=== PATIENT | female | born 1950 | race Caucasian/White ===

== ENCOUNTER 2016-12-20 09:22 | Emergency (ER) | payer MEDICARE, OTHER ==
[2016-12-20 09:39] VITALS: BP 95/62
--- NOTE | 2016-12-20 10:07 | RAD ---
INDICATION: Cough COMPARISON: None TECHNIQUE: PA and lateral dual-energy views were obtained. FINDINGS: Bones/Soft Tissues: There are no acute bony findings. Cardiomediastinal: The cardiomediastinal silhouette is normal. The interstitium is mildly prominent. This could reflect chronic change or be related to a small amount of interstitial edema Lungs: There are no infiltrates. Pleura: There are no pleural effusions. Other: None IMPRESSION: MILD INTERSTITIAL PROMINENCE MAY RELATE TO CHRONIC CHANGE OR MILD INTERSTITIAL EDEMA
--- NOTE | 2016-12-20 10:15 | UC ---
Respiratory Complaint HPI - HPI Summary HPI Summary: cough x 3 days chest congestion , fatigue, no fever, + chills, + nasal congestion , - History of Current Complaint Chief Complaint: UCRespiratory Stated Complaint: CHEST CONGSTION, COUGH Time Seen by Provider: 12/20/16 09:45 Hx Obtained From: Patient Onset/Duration: Gradual Onset, Lasting Days - 3, Still Present Timing: Constant Severity Initially: Moderate Severity Currently: Moderate Character: Cough: Nonproductive Aggravating Factors: Exertion, Deep Breaths Alleviating Factors: Nothing Associated Signs And Symptoms: Positive: Chills, URI, Nasal Congestion. Negative: Dyspnea, Fever, Pleuritic Chest Pain, Wheezing, Hemoptysis, Dizziness , Calf Pain, Calf Swelling - Allergies/Home Medications Allergies/Adverse Reactions: Allergies Allergy/AdvReac Type Severity Reaction Status Date / Time No Known Allergies Allergy Verified 12/20/16 09:32 PMH/Surg Hx/FS Hx/Imm Hx Endocrine History: Diabetes - Surgical History Surgical History: Yes Surgery Procedure, Year, and Place: Bilateral Cataract Extractions, 2013, [facility] [place] - Family History Known Family History: Positive: Diabetes - Social History Alcohol Use: None Substance Use Type: None Smoking Status (MU): Heavy Every Day Tobacco Smoker Amount Used/How Often: 1 PPD Length of Time of Smoking/Using Tobacco: Since Age 16 Have You Smoked in the Last Year: Yes When Did the Patient Quit Smoking/Using Tobacco: 6 months ago - Immunization History Most Recent Influenza Vaccination: Not the Season Review of Systems Constitutional: Fatigue Skin: Negative Eyes: Negative ENT: Nasal Discharge Respiratory: Cough Cardiovascular: Negative Is Patient Immunocompromised?: No All Other Systems Reviewed And Are Negative: Yes Physical Exam Triage Information Reviewed: Yes Appearance: Well-Appearing, No Pain Distress, Well-Nourished Vital Signs: Initial Vital Signs Temp 99.1 F 12/20/16 09:30 Pulse 106 12/20/16 09:30 Resp 18 12/20/16 09:30 BP 95/62 12/20/16 09:30 Pulse Ox 100 12/20/16 09:30 Vital Signs Reviewed: Yes Eyes: Positive: Conjunctiva Clear ENT: Positive: Normal ENT inspection, Hearing grossly normal, Pharynx normal Neck: Positive: Supple, Nontender, No Lymphadenopathy Respiratory: Positive: Chest non-tender, Normal breath sounds, Crackles - right lower lungs Cardiovascular: Positive: Tachycardia Abdomen Description: Positive: Nontender, Soft Bowel Sounds: Positive: Present UC Diagnostic Evaluation - Laboratory O2 Sat by Pulse Oximetry: 100 Respiratory Course/Dx - Differential Dx/Diagnosis Provider Diagnoses: pneumonia Discharge - Discharge Plan Condition: Stable Disposition: HOME Prescriptions: DOXYcycline CAP(*) [DOXYcycline 100MG CAP(*)] 100 mg PO BID #20 cap Patient Education Materials: Pneumonia (ED) Forms: *Work Release Referrals: Kenyetta EASTMAN,Rick Harley [Primary Care Provider] - 5 Days
== END 2016-12-20 10:29 | disposition home or self-care (01) ==
LOC: UCCORT 09:22
DX: J18.9 Pneumonia, unspecified organism (principal); F17.210 Nicotine dependence, cigarettes, uncomplicated
CPT/HCPCS: 71020; 99212; G0463

== ENCOUNTER 2018-04-24 10:11 | Emergency (ER) | payer MEDICARE, OTHER ==
--- OUTSIDE RECORDS SUMMARY | 2018-04-24 10:29 | XMS REPORT | Continuity of Care Document ---
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 Juhi Collins MD Primary Care Physician Unavailable Payers Type Date Identification Numbers Payment Provider Subscriber Policy Number: [id number] Medicare Carleen Brothers PayID: [id number] [address] [place] [address] Policy Number: [id number] [facility] Carleen Brothers PayID: [id number] [address] [place] [address] Advance Directives Description No Information Available Problems Date Description Provider Status Onset: 11/09/2014 Essential hypertension Rick Kumari MD Active Note: low renin Onset: 11/09/2014 Obstructive sleep apnea syndrome Rick Kumari MD Active Note: severe: CPAP Onset: 11/09/2014 Spinal stenosis Rick Kumari MD Active Note: cervical Onset: 11/09/2014 Diverticular disease of colon Rick Kumari MD Active Onset: 11/09/2014 Anxiety state Rick Kumari MD Active Onset: 11/09/2014 Depressive disorder Rick Kumari MD Active Onset: 11/09/2014 Degenerative joint disease involving Rick Kumari MD Active multiple joints Onset: 11/09/2014 Carpal tunnel syndrome Rick Kumari MD Active Onset: 11/09/2014 Chronic obstructive lung disease Rick Kumari MD Active Note: 2011 FEV1/FVC 0.7 FEV 56% predicted Trikha Onset: 11/09/2014 AV jose re-entry tachycardia Rick Kumari MD Active Onset: 11/09/2014 Gastroesophageal reflux disease Rick Kumari MD Active Onset: 11/09/2014 Crohn's disease Rick Kumari MD Active Note: since 1995; colo to cecum Sep 2015 Onset: 11/09/2014 Hyperlipidemia Rick Kumari MD Active Note: Dec 2015 LDL 114 HDL 34 Trig 143 Chol 177 Onset: 11/10/2014 Obesity Rick Kumari MD Active Onset: 11/10/2014 Diarrhea Rick Kumari MD Active Note: microscopic colitis Onset: 11/10/2014 Female stress incontinence Rick Kumari MD Active Onset: 11/10/2014 Bladder muscle dysfunction - overactive Rick Kumari MD Active Note: Renal US WNL Feb 2015 Onset: 04/11/2015 Vitreous degeneration Lila Mishra PA-C Active Note: B/L; [place] Onset: 07/30/2015 Osteopenia Lila Mishra PA-C Active Note: DEXA 2015, Dr. Manzo. Next DEXA 2017 Onset: 10/04/2015 Esophageal dysmotility Rick Kumari MD Active Note: Savary 54F, upper to D3 2015 Onset: 01/07/2016 Adult health examination Lila Mishra PA-C Active Note: Next tdaP 2020. Next pneumovax 2019. Mammogram Feb 2016 (Dr. Manzo); Breast exam and Pap smear 2014 (Dr. Manzo). 2016 T (osteoporosis screening should be restarted 2017). vit D 2015. Onset: 06/19/2016 Arthritis of shoulder region joint Lila Mishra PA- C Active Note: 2017: Marked glenohumeral joint osteoarthritic changes. Medium size glenohumeral joint effusion. Mild osteoarthritic changes acromioclavicular joint. Signal abnormality supraspinatus tendon likely tendinopathy. Supraspinatus tendon intrasubstance tear cannot be definitively excluded. Onset: 12/22/2016 Acute bronchitis Arthur Toribio M.D. Active Onset: 04/02/2017 Herpes zoster without complication Arthur Toribio M.D. Active Onset: 04/02/2017 Cough Arthur Toribio M.D. 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 Cigarette Use Pack Years - 50 ETOH Use Denies alcohol use Recreational Drug Use Denies Drug Use Tobacco Use Start: Unknown Heavy tobacco smoker (more than 10 cigarettes/day) Smoking Status Reviewed: 04/02/18 Heavy tobacco smoker (more than 10 cigarettes/day) Allergies, Adverse Reactions, Alerts Date Description Reaction Status Severity Comments 06/19/2015 Chlorthalidone hypokalemia, hyponatremia Active Severe at 25 mg dose 11/01/2012 NKDA Inactive Medications Medication Date Status Form Strength Qnty SIG Indications Ordering Provider Myrbetriq 04/02 Active Tablets ER 25mg 90tab 1 by mouth N39.46 Gagen 24HR s every day Jazmine camara MS, [employer] Nystop 04/02 Active Powder [id number] 60gm apply under B37.2 Gagen t/GM breast Jazmine area twice e, MS, a day [employer] Pravastatin 12/23 Active Tablets 40mg 90tab 1 tab by E78.5 Karina, Sodium s mouth every MD Juhi day Valacyclovir HCL 07/14 Active Tablets 500mg 20tab 1 tab twice Karina, /2017 s a day for MD Juhi 10 days Azathioprine 05/14 Active Tablets 50mg 360ta 4 tabs by Sherrie /2017 bs mouth once , douglas Dean MD [phone] Bevespi 09/16 Active Aerosol 9-4.8mcg/ 32.1g 2 puffs R05 Kheti, Aerosphere /2016 Act m twice MD Lonny daily. please teach how to use medication. 1 Famotidine 07/10 Active Tablets 20mg 180ta 1 by mouth K21.9 Lima, bs twice a day Noe, as needed M.Chayito. Bupropion HCL ER 07/01 Active Tablets ER 150mg 180ta 1 by mouth Gag, (SR) 12HR bs twice a day Jazmine e, MS, [employer], CNM Ramipril 06/18 Active Capsules 2.5mg 90cap 1 by mouth I10 , s every day Jazmine e, MS, [employer], CNM Buspirone HCL 04/11 Active Tablets 7.5mg 180ta 1 tab by bs mouth twice Jazmine daily e, MS, [employer], CNM Glucosamine Active Tablets 1500 1 PO bid Unknown Double Strength Aspir-Low Active Tablets DR 81mg 1 po daily Unknown Lorazepam Active Tablets 1mg 90tab 1 by mouth Gagen, s every 8 Jazmine hours as e, MS, needed for [employer], anxiety CNM Multivitamins Active Capsules 30cap 1 by mouth Vatra, / s every day MD Rick Paroxetine HCL Active Tablets 20mg 90tab 1 by mouth Karina, / s every day MD Juhi Proventil HFA Active Aerosol 108(90Bas 2 puffs Unknown e) every 6 mcg/Act hours as needed for wheezing/sh ortness of breath Mucinex 03/19 Hx Tablets ER 600mg 30tab take 1 R05 12HR s every 12 Jazmine - hours as e, MS, 04/02 needed for [employer] congestion CNM with a full glass of water Nitrofurantoin 03/19 Hx Capsules 100mg 14cap 1 by mouth R30.0 Gagen, Monohyd Macro s twice a day Jazmine - e, MS, 04/02 [employer], CNM Phenazopyridine 03/19 Hx Tablets 200mg 6tabs give one R30.0 Gagen, HCL every three Jazmine - times a day e, MS, 04/02 [employer], CNM Fluticasone 03/19 Hx Suspension 50mcg/Act 31.6m to use 1 or R30.0 Gagen , Propionate Nasal /2017 l 2 sprays in Jazmine [place] [facility] - each e, MS, Relief 24- Hour 04/02 nostril in [facility], am CNM Zyrtec Allergy 03/19 Hx Capsules 10mg 30cap take one in R30.0 Gagen, s evening Jazmine - e, MS, 04/02 [employer], CNM Amoxicillin/Clav 02/26 Hx Tablets 875-125mg 14tab take one R05 Gagen, ulanate s tablet Jazmine Potassium - every 12 e, MS, 03/19 hours [employer], CNM Prednisone 02/26 Hx Tablets 20mg 10tab 2 tabs (40 R05 Gagen, s mg) daily Jazmine - for 5 days e, MS, 03/19 [employer], CNM Mucinex 02/26 Hx Tablets ER 600mg 30tab take 1 R05 Gagen, 12HR s every 12 Jazmine - hours as e, MS, 03/19 needed for [employer] congestion CNM with a full glass of water Cefuroxime 12/15 Hx Tablets 500mg 14tab 1 tab by J20.9 [place] Axetil s mouth twice , - a day Robbie, 12/23 M.D. Prednisone 12/15 Hx Tablets 20mg 10tab 2 tab by J20.9 [place] s mouth every , - day for 5 Robbie, 12/23 days M.D. Famciclovir 04/02 Hx Tablets 500mg 21tab take 1 B02.9 Catarino, s tablet by Andras, mouth 3 M.D. times a day for 7 days Doxycycline 04/[address] 100mg 20tab 1 tab by J20.9 Catarino, Hyclate s mouth twice Andras, a day for M.D. 10 days Prednisone 01/12 Hx Tablets 20mg 10tab 2 tabs (40 Karina, s mg) daily MD Juhi for 5 days for shortness of breath/whee zing Mucinex 01/12 Hx Tablets ER 600mg 30tab take two by Karina 12HR s mouth twice MD Juhi a day for congestion/ cough Benzonatate 01/12 Hx Capsules 200mg 90cap 1 by mouth R05 Buddy s three times Holland E., a day as DO needed cough Citroma 01/08 Hx Solution 1.745GM/3 drink 1 K50.10 0ML bottle at Jermaine, 12pm (noon)the day before the procedure Dulcolax 01/[address] 5mg 4tabs 4 tablets K50.10 taken a 8pm Jermaine, the day before the procedure Chantix Starting 09/16 Hx Tablets 0.5mg X 1tabs use as F17.210 Rashida Krishnamurthy 11 & 1 mg directed MD Lonny - X 42 10/09 Golytely 08/05 Hx Solution 236gm 4000m drink half Rec l the bottle , Jermaine, - day before 12/22 procedure half the bottle the day of the procedure Dulcolax 08/[address] 5mg 4tabs 4 tablets taken a 8pm , Jermaine, - the day 10/09 before procedure Citroma 08/05 Hx Solution 1.745GM/3 296ml drink 1 0ML bottle at Jermaine, - 12pm 10/09 (noon)the day before the procedure and one bottle the day of procedure Macrobid 04/09 Hx Capsules 100mg 14cap 1 PO bid x Z87.440 Buddy s 1 week Holland E., DO Benzonatate 04/09 Hx Capsules 200mg 90cap 1 by mouth R05 Buddy s three times Holland E., a day as DO needed cough Prednisone 04/04 Hx Tablets 20mg 10tab 2 tabs (40 Karina s mg) daily MD Juhi for 5 days for shortness of breath/whee zing Mucinex 04/04 Hx Tablets ER 600mg 30tab take two by Karina 12HR s mouth twice MD Juhi a day for congestion/ cough Azithromycin 04/04 Hx Tablets 250mg 6tabs take 2 tabs Karina on day 1 MD Juhi and take one tab days 2-5 Chantix Starting 03/18 Hx Tablets 0.5mg X 1tabs use as F17.210 Kheti, Month 11 & 1 mg directed MD Lonny X 42 Diflucan 09/10 Hx Tablets 150mg 3tabs Take 1 tab po x 3 days Holland E., - DO 10/14 Benzonatate 08/28 Hx Capsules 200mg 90cap 1 by mouth R30.0 Buddy, s three times Holland E., - a day as DO 10/14 needed cough Augmentin 08/28 Hx Tablets 875-125mg 20tab 1 by mouth R30.0 Buddy s twice a day Holland E., x 10 days DO Acidophilus 08/28 Hx Capsules 30cap 1 by mouth R30.0 Buddy, Extra Strength s every day x Holland E., - 10 days DO 06/25 Golytely 08 Hx Solution 236gm 1jug drink 03/24 K50.10 Rec the jug the Holland E., - day before DO 08/28 procedure a/d, then the other half the morning of the procedure a/d Golytely 08/28 Hx Solution 236gm 1jug drink 03/24 Rec the jug the Holland E., - day before DO 10/14 procedure a/d, then the other half the morning of the procedure a/d Detrol LA 06/18 Hx Caps ER 4mg 90cap 1 tab by Tita 24HR s mouth daily Jazmine camara MS, 04/10 [employer], CNM Levofloxacin 05/15 Hx Tablets 250mg 3tabs 1 by mouth N39.0 Nicki daily x 3 Rick, - days before 06/18 Pyridium 05/15 Hx Tablets 200mg 90tab 1 PO tid N39.0 s prn Rick, - 06/18 Macrodantin 04/11 Hx Capsules 100mg 1 by mouth Nicki bid x 7 Rick, - days MD 05/15 Chlorthalidone 04/11 Hx Tablets 25mg 90tab 1 by mouth I10 Kenyetta, s every day Rick - 06/18 Chlorthalidone 04/11 Hx Tablets 25mg 90tab 1 by mouth I10 Vat, s every day Rick, - 05/15 Triamcinolone 03/13 Hx Cream 0.1% 30uni apply Kenyetta, ts spaingly Rick, - twice a day 04/11 prn Calcium 600 Hx Tablets 600mg Unknown /0000 - 11/09 Tolterodine Hx Tablets 2mg Unknown Tartrate / - 11/[address] 20mg 90cap 1 by mouth Buddy, / s every day Holland Haines, - DO 07/10 Azathioprine Hx Tablets 50mg 360ta 4 by mouth Sherrie /0000 bs every day , Jermaine - [phone] 12/23 Buspirone HCL Hx Tablets 7.5mg 270ta 1 by mouth Vat, /0000 bs three times Rick - a day 04/11 Bupropion HCL ER Hx Tablets ER 150mg 180ta 1 by mouth Buddy, /0000 12HR bs twice a day Holland Haines, - DO 07/01 Micardis Hx Tablets 80mg Unknown / - 11/15 Loperamide HCL Hx Tablets 2mg PO Daily Unknown /0000 After Each - Unformed 04/11 Naproxen Hx Tablets 375mg Unknown / - 11/15 Calcium 500 +D Hx Tablets 500-400mg 180ta one tab by Karina, /0000 -Unit bs mouth twice MD Juhi - a day 04/02 Premarin Hx Cream 0.625mg/G 1unit 1/2 Vatra, /0000 M s applicatorf Rick - ul 06/25 intravagina lly 1-2 times a week as needed Nasonex 00 Hx Suspension 50mcg/Act 1unit 1 sprays Vatra, /0000 s each Katja Cabrera nostril bid 04/11 prn /2016 Pravastatin 0000 Hx Tablets 10mg 90tab 1 by mouth Gagen, Sodium /0000 s every at Jazmine - bedtime e, , 12/23 [employer], CNM Spiriva 0000 Hx Capsules 18mcg 90cap 1 Vatra, Handihaler /0000 s inhalation Rick, - every day 05/15 Detrol / Hx Tablets 2mg 60tab 1 by mouth Vatra, /0000 s twice a day Katja Cabrera MD 05/15 Ventolin HFA Hx Aerosol 108(90Bas 1unit 2 puffs Buddy, /0000 e) s every 4 Holland Haines, - mcg/Act hours as DO 06/25 Clindamycin HCL Hx Capsules 300mg 1 by mouth Unknown /0000 three times - daily until 05/15 Detrol LA 00/ Hx Caps ER 2mg 1 by mouth Unknown /0000 24HR every day - 06/18 Spiriva 00 Hx Capsules 18mcg 1 Unknown Handihaler /0000 inhalation - every day 06/18 Spiriva 00/00 Hx Capsules 18mcg 1 by mouth Unknown Handihaler /0000 every day - 06/25 Immunizations CPT Code Status Date Vaccine Lot # [id number] Given 12/23/2017 Influenza High Dose [id number] U-Pneum Given 01/30/2017 Pneumococcal,Unspecified [id number] 30438 Given 01/30/2017 Influenza High Dose [id number] 43833 Given 10/09/2016 Pneumococcal Conjugate Vaccine 13 Valent For [id number] Intramuscular Use [id number] Given 01/07/2016 Influenza Vaccine (Fluzone) Age 3 And Older [id number] Given 04/11/2015 Influenza Vaccine (Fluzone) Age 3 And Older [id number] 67973 Given 11/10/2014 Pneumococcal Conjugate Vaccine 13 Valent For [id number] Intramuscular Use 47390 Given 03/23/2010 Tetnus Injection U-Pneum Given 01/21/2010 Pneumococcal,Unspecified [id number] 72770 Given 02/01/2008 flu vaccination 18250 Given 01/08/2007 flu vaccination 20749 Ordered 01/14/2013 flu vaccination 65566 Given Unknown flu vaccination [id number] Ordered 12/21/2013 flu vaccination 08114 Ordered 12/06/2010 flu vaccination Vital Signs Date Vital Result Comment 04/02/2018 10:00am BP Systolic Sitting Left Arm 118 mmHg BP Diastolic Sitting Left Arm 78 mmHg Body Temperature 97.3 F Heart Rate 83 /min Respiratory Rate 18 /min Height 65 inches 5'5" Weight 174.00 lb BMI (Body Mass Index) 29.0 kg/m2 BSA (Body Surface Area) 1.86 m2 [facility] body weight in kilograms 57 kg O2 % BldC Oximetry 98 % ra 03/19/2018 10:45am BP Systolic Sitting Right Arm 110 mmHg BP Diastolic Sitting Right Arm 70 mmHg Body Temperature 97.4 F Heart Rate 91 /min reg Respiratory Rate 18 /min Weight 170.00 lb O2 % BldC Oximetry 97 % ra 02/26/2018 9:58am BP Systolic Sitting Left Arm 110 mmHg BP Diastolic Sitting Left Arm 64 mmHg Body Temperature 97.0 F Heart Rate 75 /min reg Respiratory Rate 24 /min Height 65 inches 5'5" Weight 181.00 lb BMI (Body Mass Index) 30.1 kg/m2 BSA (Body Surface Area) 1.90 m2 [facility] body weight in kilograms 57 kg O2 % BldC Oximetry 97 % ra 01/19/2018 3:52pm BP Systolic Sitting Left Arm 116 mmHg BP Diastolic Sitting Left Arm 74 mmHg Heart Rate 87 /min Respiratory Rate 16 /min Height 65 inches 5'5" Weight 182.50 lb BMI (Body Mass Index) 30.4 kg/m2 BSA (Body Surface Area) 1.90 m2 [facility] body weight in kilograms 57 kg O2 Saturation Level with Exercise 96 % 12/23/2017 2:26pm BP Systolic Sitting Right Arm 120 mmHg BP Diastolic Sitting Right Arm 74 mmHg Body Temperature 96.0 F Heart Rate 87 /min Respiratory Rate 16 /min Height 65 inches 5'5" Weight 179.00 lb BMI (Body Mass Index) 29.8 kg/m2 BSA (Body Surface Area) 1.89 m2 [facility] body weight in kilograms 57 kg O2 % BldC Oximetry 96 % 12/15/2017 8:53am BP Systolic 127 mmHg BP Diastolic 74 mmHg Body Temperature 98.0 F Heart Rate 80 /min Respiratory Rate 16 /min Weight 180.00 lb O2 % BldC Oximetry 96 % Ra Pain Level 0 05/12/2017 3:57pm BP Systolic Sitting Left Arm 122 mmHg BP Diastolic Sitting Left Arm 80 mmHg Heart Rate 84 /min Respiratory Rate 16 /min Height 65 inches 5'5" Weight 190.00 lb BMI (Body Mass Index) 31.6 kg/m2 BSA (Body Surface Area) 1.94 m2 [facility] body weight in kilograms 57 kg O2 % BldC Oximetry 96 % Ora 05/04/2017 9:32am BP Systolic Sitting Right Arm 141 mmHg Ofe 118/64 BP Diastolic Sitting Right Arm 74 mmHg Ofe 118/64 Heart Rate 75 /min Respiratory Rate 16 /min Height 65 inches 5'5" Weight 188.00 lb BMI (Body Mass Index) 31.3 kg/m2 BSA (Body Surface Area) 1.93 m2 [facility] body weight in kilograms 57 kg 04/02/2017 3:21pm BP Systolic 121 mmHg BP Diastolic 67 mmHg Body Temperature 98.6 F Heart Rate 105 /min Respiratory Rate 16 /min Height 65 inches 5'5" [facility] body weight in kilograms 57 kg O2 % BldC Oximetry 94 % 02/19/2017 2:21pm BP Systolic Sitting Left Arm 124 mmHg BP Diastolic Sitting Left Arm 80 mmHg Heart Rate 97 /min Respiratory Rate 16 /min Height 65 inches 5'5" Weight 188.00 lb BMI (Body Mass Index) 31.3 kg/m2 BSA (Body Surface Area) 1.93 m2 [facility] body weight in kilograms 57 kg 01/30/2017 11:17am BP Systolic Sitting Left Arm 122 mmHg BP Diastolic Sitting Left Arm 67 mmHg Heart Rate 76 /min Height 65 inches 5'5" Weight 191.00 lb BMI (Body Mass Index) 31.8 kg/m2 BSA (Body Surface Area) 1.94 m2 [facility] body weight in kilograms 57 kg 01/12/2017 1:00pm BP Systolic 151 mmHg BP Diastolic 76 mmHg Body Temperature 97.0 F Heart Rate 83 /min Height 65 inches 5'5" Weight 190.25 lb BMI (Body Mass Index) 31.7 kg/m2 BSA (Body Surface Area) 1.94 m2 [facility] body weight in kilograms 57 kg O2 % BldC Oximetry 94 % 01/08/2017 10:54am BP Systolic Sitting Left Arm 130 mmHg BP Diastolic Sitting Left Arm 80 mmHg Heart Rate 94 /min Respiratory Rate 16 /min Height 65 inches 5'5" Weight 191.00 lb BMI (Body Mass Index) 31.8 kg/m2 BSA (Body Surface Area) 1.94 m2 [facility] body weight in kilograms 57 kg 12/22/2016 11:22am BP Systolic 122 mmHg BP Diastolic 76 mmHg Heart Rate 91 /min Respiratory Rate 16 /min Height 65 inches 5'5" Weight 191.12 lb BMI (Body Mass Index) 31.8 kg/m2 BSA (Body Surface Area) 1.94 m2 [facility] body weight in kilograms 57 kg O2 % BldC Oximetry 93 % 10/09/2016 1:36pm BP Systolic Sitting Left Arm 112 mmHg BP Diastolic Sitting Left Arm 67 mmHg Heart Rate 74 /min Respiratory Rate 12 /min Height 65 inches 5'5" Weight 196.38 lb BMI (Body Mass Index) 32.7 kg/m2 BSA (Body Surface Area) 1.96 m2 [facility] body weight in kilograms 57 kg O2 % BldC Oximetry 91 % 09/16/2016 1:47pm BP Systolic Sitting Right Arm 122 mmHg BP Diastolic Sitting Right Arm 64 mmHg Heart Rate 84 /min Respiratory Rate 18 /min Height 65 inches 5'5" Weight 200.00 lb BMI (Body Mass Index) 33.3 kg/m2 BSA (Body Surface Area) 1.98 m2 [facility] body weight in kilograms 57 kg O2 % BldC Oximetry 95 % Room air 08/05/2016 10:54am BP Systolic Sitting Left Arm 126 mmHg BP Diastolic Sitting Left Arm 76 mmHg Heart Rate 80 /min Respiratory Rate 16 /min Height 65 inches 5'5" Weight 197.00 lb BMI (Body Mass Index) 32.8 kg/m2 BSA (Body Surface Area) 1.97 m2 [facility] body weight in kilograms 57 kg 07/10/2016 1:01pm BP Systolic 113 mmHg BP Diastolic 69 mmHg Heart Rate 82 /min Respiratory Rate 20 /min Height 65 inches 5'5" Weight 198.00 lb BMI (Body Mass Index) 32.9 kg/m2 BSA (Body Surface Area) 1.97 m2 O2 % BldC Oximetry 96 % 06/25/2016 9:16am BP Systolic 132 mmHg BP Diastolic 78 mmHg Heart Rate 75 /min Height 65 inches 5'5" Weight 198.00 lb BMI (Body Mass Index) 32.9 kg/m2 BSA (Body Surface Area) 1.97 m2 [facility] body weight in kilograms 57 kg 06/02/2016 9:32am BP Systolic 130 mmHg BP Diastolic 66 mmHg Heart Rate 78 /min Height 66 inches 5'6" Weight 195.00 lb BMI (Body Mass Index) 31.5 kg/m2 BSA (Body Surface Area) 1.98 m2 04/09/2016 10:26am BP Systolic 150 mmHg BP Diastolic 80 mmHg Body Temperature 97.2 F Heart Rate 76 /min Height 66 inches 5'6" Weight 198.00 lb BMI (Body Mass Index) 32.0 kg/m2 BSA (Body Surface Area) 1.99 m2 O2 % BldC Oximetry 97 % 04/04/2016 3:18pm BP Systolic 120 mmHg BP Diastolic 76 mmHg Body Temperature 97.3 F Heart Rate 95 /min Height 66 inches 5'6" Weight 196.00 lb BMI (Body Mass Index) 31.6 kg/m2 BSA (Body Surface Area) 1.98 m2 O2 % BldC Oximetry 95 % 03/18/2016 2:01pm BP Systolic Sitting Right Arm 136 mmHg BP Diastolic Sitting Right Arm 72 mmHg Heart Rate 72 /min Respiratory Rate 16 /min Height 66 inches 5'6" Weight 200.00 lb BMI (Body Mass Index) 32.3 kg/m2 BSA (Body Surface Area) 2.00 m2 O2 % BldC Oximetry 96 % Room Air 01/07/2016 9:04am BP Systolic 119 mmHg BP Diastolic 64 mmHg Heart Rate 85 /min Height 66 inches 5'6" Weight 198.00 lb BMI (Body Mass Index) 32.0 kg/m2 BSA (Body Surface Area) 1.99 m2 10/16/2015 2:48pm BP Systolic Sitting Right Arm 118 mmHg BP Diastolic Sitting Right Arm 78 mmHg Heart Rate 77 /min Height 66 inches 5'6" Weight 193.00 lb BMI (Body Mass Index) 31.1 kg/m2 BSA (Body Surface Area) 1.97 m2 [facility] body weight in kilograms 59 kg O2 % BldC Oximetry 95 % Ra 10/16/2015 1:29pm BP Systolic 128 mmHg BP Diastolic 68 mmHg Heart Rate 92 /min Respiratory Rate 18 /min Height 66 inches 5'6" Weight 194.00 lb BMI (Body Mass Index) 31.3 kg/m2 BSA (Body Surface Area) 1.97 m2 O2 % BldC Oximetry 98 % ra 08/29/2015 9:48am BP Systolic 130 mmHg BP Diastolic 76 mmHg Body Temperature 98.2 F Heart Rate 72 /min Height 66 inches 5'6" Weight 195.00 lb BMI (Body Mass Index) 31.5 kg/m2 BSA (Body Surface Area) 1.98 m2 08/06/2015 1:32pm BP Systolic 127 mmHg BP Diastolic 76 mmHg Heart Rate 75 /min Height 66 inches 5'6" Weight 197.00 lb BMI (Body Mass Index) 31.8 kg/m2 BSA (Body Surface Area) 1.99 m2 06/19/2015 2:32pm BP Systolic 111 mmHg BP Diastolic 63 mmHg Heart Rate 87 /min Height 66 inches 5'6" Weight 197.00 lb BMI (Body Mass Index) 31.8 kg/m2 BSA (Body Surface Area) 1.99 m2 05/15/2015 3:53pm BP Systolic 111 mmHg BP Diastolic 70 mmHg Heart Rate 89 /min Height 66 inches 5'6" Weight 198.00 lb BMI (Body Mass Index) 32.0 kg/m2 BSA (Body Surface Area) 1.99 m2 04/17/2015 1:09pm BP Systolic Sitting Left Arm 124 mmHg BP Diastolic Sitting Left Arm 72 mmHg Heart Rate 92 /min Height 66 inches 5'6" Weight 202.00 lb BMI (Body Mass Index) 32.6 kg/m2 BSA (Body Surface Area) 2.01 m2 O2 % BldC Oximetry 95 % 04/11/2015 3:03pm BP Systolic 142 mmHg BP Diastolic 90 mmHg Height 66 inches 5'6" Weight 200.00 lb BMI (Body Mass Index) 32.3 kg/m2 BSA (Body Surface Area) 2.00 m2 11/15/2014 2:23pm BP Systolic 138 mmHg BP Diastolic 70 mmHg Body Temperature 98.6 F Heart Rate 80 /min Height 66 inches 5'6" Weight 208.00 lb BMI (Body Mass Index) 33.6 kg/m2 BSA (Body Surface Area) 2.03 m2 O2 % BldC Oximetry 97 % Ra 11/10/2014 9:04am BP Systolic 126 mmHg BP Diastolic 84 mmHg Heart Rate 68 /min Height 66 inches 5'6" Weight 211.00 lb BMI (Body Mass Index) 34.1 kg/m2 BSA (Body Surface Area) 2.05 m2 11/01/2012 10:18am BP Systolic Sitting Right Arm 120 mmHg BP Diastolic Sitting Right Arm 80 mmHg Height 67 inches 5'7" Weight 190.00 lb BMI (Body Mass Index) 29.8 kg/m2 BSA (Body Surface Area) 1.98 m2 Results Test Date Facility Test Result H/L Range Note Urine Dipstick 03/19/2018 [facility] Ua Color yellow Yellow Ua Clarity clear Clear Ua Leuko 2+ High Negative Ua Nitrite negative Negative Ua Urobilinogen negative Low 0.2 - 1.0 E.U./dL Ua Protein negative Negative Ua PH 6.0 Low 6.5-7.5 Ua Blood trace Negative Ua Specific [place] 1.010 1.010-1.030 Ua Ketones negative Negative Ua Bilirubin negative Negative Ua Glucose negative Negative Ua RFX Micro & Culture 03/19/2018 [facility] Urine Color YELLOW Yellow II [address] [place] [address] [phone] Urine Clarity CLEAR Clear Urine Glucose - Dipstick NEGATIVE mg/dL Negative Urine Bilirubin - Dipstick NEGATIVE Negative Urine Ketone NEGATIVE mg/dL Negative Urine Specific [place] <=1.005 Low 1.010-1.030 Urine Blood TRACE Negative Urine PH 6.0 Low 6.5-7.5 Urine Protein - Dipstick NEGATIVE mg/dL Negative Urine Urobilinogen - Dipstick 0.2 E.U./dL N 0.2-1.0 Urine Nitrite - Dipstick POSITIVE Abnormal Negative Urine Leuk Esterase SMALL Abnormal Negative Urine RBC 2-5 rbc/hpf 0-2 Urine WBC 10-20 wbc/hpf High 0-7 Urine Epithelial Cells FEW /lpf None Seen Urine Bacteria VERY FEW None Seen Source: URINE, CLEAN CAT <SEE NOTE> 1 Culture If 03/19/2018 [facility] Culture If CULTURE TO 2 Indicated Comment [address] [facility] Indicated Comment FOLLO <[place] [address] NOTE> [phone] Source: URINE, CLEAN CAT <SEE NOTE> 3 Urine Culture 03/19/2018 [facility] Urine Culture ESCHERICHIA COLI Abnormal [address] [place] [address] [phone] Quantity > 100,000 CFU/mL 5 Urine Culture URETHRAL CRISTY Quantity 10,000 - 50,000 <SEE NOTE> 6 Escherichia Coli 03/19/2018 [facility] Nitrofurantoin <=16 S [address] [place] [address] [phone] Trimethoprim/Sulfamethoxazole <=20 S Ampicillin >=32 R Cefazolin <=4 S Ampicillin/Sulbactam >=32 R Ciprofloxacin <=0.25 S Piperacillin/Tazobactam <=4 S Ceftazidime <=1 S Ceftriaxone <=1 S Cefepime <=1 S Levofloxacin <=0.12 S Imipenem <=0.25 S Gentamicin <=1 S Tobramycin <=1 S Comprehensive Metabolic 03/08/2018 [facility] Glucose 100 mg/dL N 74-106 7 Panel [address] [place], [place] [id number] [phone] BUN 11 mg/dL N 7-18 Creatinine 0.8 mg/dL N 0.6-1.3 Glom Filtration Rate, Estimate >60 mL/min >60 If >60 mL/min >60 8 BUN/Creat 13.7 ratio Sodium 137 mmol/L N 136-145 Potassium 4.7 mmol/L N 3.5-5.1 Chloride 102 mmol/L N 98-107 Carbon Dioxide 32 mmol/L N 21-32 Anion Gap 3 mEq/L Low 8-16 Calcium 9.9 mg/dL N 8.5-10.1 Total Protein 8.4 g/dL High 6.4-8.2 Albumin 3.5 g/dL N 3.4-5.0 Globulin 4.9 g/dL High 1.9-4.3 Alb/Glob 0.7 ratio Bilirubin,Total 0.5 mg/dL N 0.2-1.0 Sgot/Ast 16 U/L N 15-37 SGPT/Alt 28 U/L N 12-78 Alkaline Phosphatase 109 U/L N 45-117 LDL Cholesterol Profile 03/08/2018 [facility] Cholesterol 173 mg/dL <200 9 [address] [place], [place] [id number] [phone] Triglycerides 125 mg/dL <150 10 HDL Cholesterol 38 mg/dL Low >40 11 LDL-Cholesterol 110 mg/dL < 100 12 Laboratory test finding 01/19/2018 [facility] Lipase 157 U/L N 56-289 13 [address] [place] [address] [phone] Amylase 24 U/L Low 25-115 Comprehensive 12/15/2017 [facility] Glucose 110 mg/dL High 74-106 14 Metabolic Panel [address] [place] [address] [phone] BUN 15 mg/dL N 7-18 Creatinine 0.8 mg/dL N 0.6-1.3 Glom Filtration Rate, Estimate >60 mL/min >60 If >60 mL/min >60 15 BUN/Creat 18.7 ratio Sodium 142 mmol/L N 136-145 Potassium 4.6 mmol/L N 3.5-5.1 Chloride 106 mmol/L N 98-107 Carbon Dioxide 31 mmol/L N 21-32 Anion Gap 5 mEq/L Low 8-16 Calcium 9.5 mg/dL N 8.5-10.1 Total Protein 7.8 g/dL N 6.4-8.2 Albumin 3.6 g/dL N 3.4-5.0 Globulin 4.2 g/dL N 1.9-4.3 Alb/Glob 0.9 ratio Bilirubin,Total 0.2 mg/dL N 0.2-1.0 Sgot/Ast 27 U/L N 15-37 SGPT/Alt 46 U/L N 12-78 Alkaline Phosphatase 99 U/L N 45-117 LDL Cholesterol Profile 12/15/2017 [facility] Cholesterol 185 mg/dL <[address] [place], [place] [id number] [phone] Triglycerides 147 mg/dL <150 17 HDL Cholesterol 35 mg/dL Low >40 18 LDL-Cholesterol 121 mg/dL < 100 19 Glycohemoglobin A1c 12/15/2017 [facility] Glycohemoglobin 5.5 % N 4.2-6.[address] (A1c) [place], [place] [id number] [phone] eAG 111 mg/dL CBS W/Automated Diff 12/15/2017 [facility] White Blood 7.7 K/uL N 3.1-10.[address] [place] [address] [phone] Red Blood Count 4.39 M/uL N 3.90-5.40 Hemoglobin 14.4 gm/dL N 11.6-15.8 Hematocrit 43.6 % N 36.0-46.1 Mean Cell Volume 99.3 fl High 80.9-99.0 Mean Corpuscular HGB 32.8 pg High 25.9-32.7 Mean Corpuscular HGB Conc 33.0 g/dL N 30.8-34.3 Platelet Count 235 K/uL N 155-360 Red Cell Distri Width SD 49.7 fl High 3-47 Red Cell Distri Width %CV 13.9 % N 11.7-14.4 Mean Platelet Volume 11.0 fL N 8.9-12.4 Neut% 73.1 % High 40.4-72.8 Lymph % 12.4 % Low 20.0-42.0 [place] % 11.5 % N 4.3-13.2 Eo% 2.6 % N 0.0-6.6 Bas% 0.4 % N 0.0-1.1 Neut# 5.64 K/uL N 1.8-7.0 Lymph # 0.96 K/uL Low 1.0-4.0 [place] # 0.89 K/uL N 0.3-0.9 Eos # 0.20 K/uL N 0.0-0.5 Baso # 0.03 K/uL N 0.0-0.1 Laboratory test finding 04/28/2017 [facility] Lipase 248 U/L N 56-289 21 [address] [place] [address] [phone] Amylase 27 U/L N 25-115 LDL Cholesterol Profile 04/28/2017 [facility] Cholesterol 171 mg/dL <200 22 [address] [place] [address] [phone] Triglycerides 190 mg/dL High <150 23 HDL Cholesterol 37 mg/dL Low >40 24 LDL-Cholesterol 96 mg/dL < 100 25 CBS W/Automated Diff 04/28/2017 [facility] White Blood 8.4 K/uL N 3.1-10.[address] [place] [address] [phone] Red Blood Count 4.33 M/uL N 3.90-5.40 Hemoglobin 14.1 gm/dL N 11.6-15.8 Hematocrit 42.9 % N 36.0-46.1 Mean Cell Volume 99.1 fl High 80.9-99.0 Mean Corpuscular HGB 32.6 pg N 25.9-32.7 Mean Corpuscular HGB Conc 32.9 g/dL N 30.8-34.3 Platelet Count 229 K/uL N 155-360 Red Cell Distri Width SD 50.8 fl High 3-47 Red Cell Distri Width %CV 14.3 % N 11.7-14.4 Mean Platelet Volume 11.3 fL N 8.9-12.4 Neut% 74.5 % High 40.4-72.8 Lymph % 11.3 % Low 20.0-42.0 [place] % 10.3 % N 4.3-13.2 Eo% 3.7 % N 0.0-6.6 Bas% 0.2 % N 0.0-1.1 Neut# 6.27 K/uL N 1.8-7.0 Lymph # 0.95 K/uL Low 1.0-4.0 [place] # 0.87 K/uL N 0.3-0.9 Eos # 0.31 K/uL N 0.0-0.5 Baso # 0.02 K/uL N 0.0-0.1 Glycohemoglobin A1c 04/28/2017 [facility] Glycohemoglobin 6.0 % N 4.2-6.[address] (A1c) [place], [place] [id number] [phone] eAG 126 mg/dL Comprehensive Metabolic 04/28/2017 [facility] Glucose 119 mg/dL High 74-[address] [place] [address] [phone] BUN 13 mg/dL N 7-18 Creatinine 0.8 mg/dL N 0.6-1.3 Glom Filtration Rate, Estimate >60 mL/min >60 If >60 mL/min >60 27 BUN/Creat 16.2 ratio Sodium 138 mmol/L N 136-145 Potassium 4.3 mmol/L N 3.5-5.1 Chloride 103 mmol/L N 98-107 Carbon Dioxide 30 mmol/L N 21-32 Anion Gap 5 mEq/L Low 8-16 Calcium 9.8 mg/dL N 8.5-10.1 Total Protein 7.6 g/dL N 6.4-8.2 Albumin 3.6 g/dL N 3.4-5.0 Globulin 4.0 g/dL N 1.9-4.3 Alb/Glob 0.9 ratio Bilirubin,Total 0.2 mg/dL N 0.2-1.0 Sgot/Ast 19 U/L N 15-37 SGPT/Alt 44 U/L N 12-78 Alkaline Phosphatase 93 U/L N 45-117 LDL Cholesterol 01/29/2017 [facility] Cholesterol 158 mg/dL <200 28, [address] [place] [address] [phone] Triglycerides 225 mg/dL High <150 30 HDL Cholesterol 33 mg/dL Low >40 31 LDL-Cholesterol 80 mg/dL < 100 32 Laboratory test 01/29/2017 [facility] Vitamin 40.3 30.0-100.0 [address] D,25-Hydroxy ng/[place] [address] [phone] Comprehensive 01/29/2017 [facility] Glucose 107 High 74-106 Metabolic Panel [address] mg/[place] [address] [phone] BUN 9 mg/dL N 7-18 Creatinine 0.8 mg/dL N 0.6-1.3 Glom Filtration Rate, Estimate >60 mL/min >60 If >60 mL/min >60 34 BUN/Creat 11.2 ratio Sodium 139 mmol/L N 136-145 Potassium 4.7 mmol/L N 3.5-5.1 Chloride 104 mmol/L N 98-107 Carbon Dioxide 29 mmol/L N 21-32 Anion Gap 6 mEq/L Low 8-16 Calcium 9.5 mg/dL N 8.5-10.1 Total Protein 7.6 g/dL N 6.4-8.2 Albumin 3.5 g/dL N 3.4-5.0 Globulin 4.1 g/dL N 1.9-4.3 Alb/Glob 0.9 ratio Bilirubin,Total 0.4 mg/dL N 0.2-1.0 Sgot/Ast 16 U/L N 15-37 SGPT/Alt 31 U/L N 12-78 Alkaline Phosphatase 94 U/L N 45-117 CBS W/Automated Diff 01/29/2017 [facility] White Blood 8.7 K/uL N 3.1-10.[address] [place] [address] [phone] Red Blood Count 4.29 M/uL N 3.90-5.40 Hemoglobin 14.0 gm/dL N 11.6-15.8 Hematocrit 43.0 % N 36.0-46.1 Mean Cell Volume 100.2 fl High 80.9-99.0 Mean Corpuscular HGB 32.6 pg N 25.9-32.7 Mean Corpuscular HGB Conc 32.6 g/dL N 30.8-34.3 Platelet Count 205 K/uL N 150-400 Red Cell Distri Width SD 52.3 fl High 3-47 Red Cell Distri Width %CV 14.7 % High 11.7-14.4 Mean Platelet Volume 11.8 fL N 8.9-12.4 Neut% 72.9 % High 40.4-72.8 Lymph % 14.1 % Low 20.0-42.0 [place] % 8.8 % N 4.3-13.2 Eo% 3.9 % N 0.0-6.6 Bas% 0.3 % N 0.0-1.1 Neut# 6.34 K/uL N 1.8-7.0 Lymph # 1.23 K/uL N 1.0-4.0 [place] # 0.77 K/uL N 0.3-0.9 Eos # 0.34 K/uL N 0.0-0.5 Baso # 0.03 K/uL N 0.0-0.1 Comprehensive 10/06/2016 [facility] Glucose 134 mg/dL High 74-106 35 Metabolic Panel [address] [place] [address] [phone] BUN 11 mg/dL N 7-18 Creatinine 0.7 mg/dL N 0.6-1.3 Glom Filtration Rate, Estimate >60 mL/min >60 If >60 mL/min >60 36 BUN/Creat 15.7 ratio Sodium 141 mmol/L N 136-145 Potassium 4.4 mmol/L N 3.5-5.1 Chloride 105 mmol/L N 98-107 Carbon Dioxide 27 mmol/L N 21-32 Anion Gap 9 mEq/L N 8-16 Calcium 9.0 mg/dL N 8.5-10.1 Total Protein 7.5 g/dL N 6.4-8.2 Albumin 3.4 g/dL N 3.4-5.0 Globulin 4.1 g/dL N 1.9-4.3 Alb/Glob 0.8 ratio Bilirubin,Total 0.3 mg/dL N 0.2-1.0 Sgot/Ast 20 U/L N 15-37 SGPT/Alt 30 U/L N 12-78 Alkaline Phosphatase 94 U/L N 45-117 CBS W/Automated Diff 10/06/2016 [facility] White Blood 9.4 K/uL N 3.1-10.[address] [place] [address] [phone] Red Blood Count 4.22 M/uL N 3.90-5.40 Hemoglobin 13.6 gm/dL N 11.6-15.8 Hematocrit 41.5 % N 36.0-46.1 Mean Cell Volume 98.3 fl N 80.9-99.0 Mean Corpuscular HGB 32.2 pg N 25.9-32.7 Mean Corpuscular HGB Conc 32.8 g/dL N 30.8-34.3 Platelet Count 245 K/uL N 150-400 Red Cell Distri Width SD 48.7 fl High 3-47 Red Cell Distri Width %CV 14.0 % N 11.7-14.4 Mean Platelet Volume 11.1 fL N 8.9-12.4 Neut% 80.0 % High 40.4-72.8 Lymph % 9.8 % Low 20.0-42.0 [place] % 6.8 % N 4.3-13.2 Eo% 3.0 % N 0.0-6.6 Bas% 0.4 % N 0.0-1.1 Neut# 7.51 K/uL High 1.8-7.0 Lymph # 0.92 K/uL Low 1.0-4.0 [place] # 0.64 K/uL N 0.3-0.9 Eos # 0.28 K/uL N 0.0-0.5 Baso # 0.04 K/uL N 0.0-0.1 Slide Review 10/06/2016 [facility] Slide Review . [address] [place] [address] [phone] Laboratory test 08/05/2016 [facility] Sedimentation Rate 60 High 0-30 [address] mm/[place] [address] [phone] C-Reactive Protein,Quant 15.9 mg/L High <3.0 Celiac Disease 08/05/2016 [facility] Immunoglobulin A 494 mg/dL High 87-352 Comp AB [address] [place] [address] [phone] Antigliadin Abs, IgG 3 units 0-19 39 Antigliadin Abs, IgA 6 units 0-19 40 Endomysial IgA Antibody Negative Negative t-Transglutaminase IgA <2 U/mL 0-3 41 t-Transglutaminase IgG <2 U/mL 0-5 42 Laboratory test finding 08/05/2016 [facility] Amylase 23 U/L Low 25-[address] [place] [address] [phone] Lipase 175 U/L N 73-393 Inflammatory 08/05/2016 [facility] Atypical <1:20 Neg:<1:20 43 Bowel Disease [address] [place] [place] [address] [phone] Saccharomyces cerevisiae, IgG < 20.0 units 0.0-24.9 44 Saccharomyces cerevisiae, IgA < 20.0 units 0.0-24.9 45 CBS W/Automated 06/30/2016 [facility] White Blood 9.0 K/uL N 3.1-10.7 [address] [place] [address] [phone] Red Blood Count 4.47 M/uL N 3.90-5.40 Hemoglobin 14.4 gm/dL N 11.6-15.8 Hematocrit 44.1 % N 36.0-46.1 Mean Cell Volume 98.7 fl N 80.9-99.0 Mean Corpuscular HGB 32.2 pg N 25.9-32.7 Mean Corpuscular HGB Conc 32.7 g/dL N 30.8-34.3 Platelet Count 254 K/uL N 150-400 Red Cell Distri Width SD 51.0 fl High 3-47 Red Cell Distri Width %CV 14.3 % N 11.7-14.4 Mean Platelet Volume 11.2 fL N 8.9-12.4 Neut% 77.7 % High 40.4-72.8 Lymph % 10.3 % Low 20.0-42.0 [place] % 9.5 % N 4.3-13.2 Eo% 2.2 % N 0.0-6.6 Bas% 0.3 % N 0.0-1.1 Neut# 7.00 K/uL N 1.8-7.0 Lymph # 0.93 K/uL Low 1.0-4.0 [place] # 0.86 K/uL N 0.3-0.9 Eos # 0.20 K/uL N 0.0-0.5 Baso # 0.03 K/uL N 0.0-0.1 Comprehensive Metabolic 06/30/2016 [facility] Glucose 111 mg/dL High 74-106 Panel [address] [place] [address] [phone] BUN 10 mg/dL N 7-18 Creatinine 0.9 mg/dL N 0.6-1.3 Glom Filtration Rate, Estimate >60 mL/min >60 If >60 mL/min >60 47 BUN/Creat 11.1 ratio Sodium 139 mmol/L N 136-145 Potassium 4.4 mmol/L N 3.5-5.1 Chloride 101 mmol/L N 98-107 Carbon Dioxide 33 mmol/L High 21-32 Anion Gap 5 mEq/L Low 8-16 Calcium 9.9 mg/dL N 8.5-10.1 Total Protein 8.1 g/dL N 6.4-8.2 Albumin 4.1 g/dL N 3.4-5.0 Globulin 4.0 g/dL N 1.9-4.3 Alb/Glob 1.0 ratio Bilirubin,Total 0.6 mg/dL N 0.2-1.0 Sgot/Ast 18 U/L N 15-37 SGPT/Alt 31 U/L N 12-78 Alkaline Phosphatase 105 U/L N 45-117 Laboratory test 06/30/2016 [facility] Magnesium 2.3 mg/dL N 1.8-2.4 finding [address] [place] [address] [phone] Comprehensive 04/16/2016 [facility] Glucose 112 mg/dL High 74-106 48 Metabolic Panel [address] [place] [address] [phone] BUN 12 mg/dL N 7-18 Creatinine 0.7 mg/dL N 0.6-1.3 Glom Filtration Rate, Estimate >60 mL/min N >60 If >60 mL/min N >60 49 BUN/Creat 17.1 ratio N Sodium 140 mmol/L N 136-145 Potassium 4.6 mmol/L N 3.5-5.1 Chloride 102 mmol/L N 98-107 Carbon Dioxide 30 mmol/L N 21-32 Anion Gap 8 mEq/L N 8-16 Calcium 9.4 mg/dL N 8.5-10.1 Total Protein 7.7 g/dL N 6.4-8.2 Albumin 3.4 g/dL N 3.4-5.0 Globulin 4.3 g/dL N 1.9-4.3 Alb/Glob 0.8 ratio N Bilirubin,Total 0.6 mg/dL N 0.2-1.0 Sgot/Ast 17 U/L N 15-37 SGPT/Alt 48 U/L N 12-78 Alkaline Phosphatase 103 U/L N 45-117 Slide Review 04/16/2016 [facility] Slide Review DIFF ORDERED N [address] [place], [place] [id number] [phone] Differential-WBC 04/16/2016 [facility] Total Cells 100 #CELLS N Confirm [address] Counted [place], [place] [id number] [phone] Band% 7 % N 0-8 Neutrophils% 78 % High 33-73 Lymph% 3 % Low 20-42 Monocyte% 7 % N 0-10 Eosinophil% 4 % N 0-5 Basophil% 1 % N 0-2 Platelet Estimate NORMAL N Anisocytosis 0-1+ N Macrocytosis 0-1+ N CBS W/Automated 04/16/2016 [facility] White Blood 11.6 K/uL High 3.1-10.[address] Count [place], [place] [id number] [phone] Red Blood Count 4.45 M/uL N 3.90-5.40 Hemoglobin 14.1 gm/dL N 11.6-15.8 Hematocrit 43.0 % N 36.0-46.1 Mean Cell Volume 96.6 fl N 80.9-99.0 Mean Corpuscular HGB 31.7 pg N 25.9-32.7 Mean Corpuscular HGB Conc 32.8 g/dL N 30.8-34.3 Platelet Count 249 K/uL N 155-360 Red Cell Distri Width SD 49.2 fl High 3-47 Red Cell Distri Width %CV 14.2 % N 11.7-14.4 Mean Platelet Volume 10.8 fL N 8.9-12.4 50 Neut# 8.94 K/uL High 1.8-7.0 Lymph # 0.96 K/uL Low 1.0-4.0 [place] # 0.99 K/uL High 0.3-0.9 Eos # 0.66 K/uL High 0.0-0.5 Baso # 0.05 K/uL N 0.0-0.1 CBS W/Automated 04/09/2016 [facility] White Blood 15.7 K/uL High 3.1-10.7 [address] [place] [address] [phone] Red Blood Count 4.64 M/uL N 3.90-5.40 Hemoglobin 14.5 gm/dL N 11.6-15.8 Hematocrit 45.2 % N 36.0-46.1 Mean Cell Volume 97.4 fl N 80.9-99.0 Mean Corpuscular HGB 31.3 pg N 25.9-32.7 Mean Corpuscular HGB Conc 32.1 g/dL N 30.8-34.3 Platelet Count 310 K/uL N 155-360 Red Cell Distri Width SD 48.7 fl High 3-47 Red Cell Distri Width %CV 13.8 % N 11.7-14.4 Mean Platelet Volume 10.8 fL N 8.9-12.4 Neut% 86.2 % High 40.4-72.8 Lymph % 6.3 % Low 20.0-42.0 [place] % 7.3 % N 4.3-13.2 Eo% 0.1 % N 0.0-6.6 Bas% 0.1 % N 0.0-1.1 Neut# 13.51 K/uL High 1.8-7.0 Lymph # 0.98 K/uL Low 1.0-4.0 [place] # 1.14 K/uL High 0.3-0.9 Eos # 0.01 K/uL N 0.0-0.5 Baso # 0.01 K/uL N 0.0-0.1 Comprehensive Metabolic 04/09/2016 [facility] Glucose 111 mg/dL High 74-[address] [place], [place] [id number] [phone] BUN 11 mg/dL N 7-18 Creatinine 0.7 mg/dL N 0.6-1.3 Glom Filtration Rate, Estimate >60 mL/min N >60 If >60 mL/min N >60 52 BUN/Creat 15.7 ratio N Sodium 138 mmol/L N 136-145 Potassium 4.5 mmol/L N 3.5-5.1 Chloride 103 mmol/L N 98-107 Carbon Dioxide 30 mmol/L N 21-32 Anion Gap 5 mEq/L Low 8-16 Calcium 9.8 mg/dL N 8.5-10.1 Total Protein 7.8 g/dL N 6.4-8.2 Albumin 3.5 g/dL N 3.4-5.0 Globulin 4.3 g/dL N 1.9-4.3 Alb/Glob 0.8 ratio N Bilirubin,Total 0.3 mg/dL N 0.2-1.0 Sgot/Ast 9 U/L Low 15-37 53 SGPT/Alt 26 U/L N 12-78 Alkaline Phosphatase 88 U/L N 45-117 Slide Review 04/09/2016 [facility] Slide Review . N [address] [place] [address] [phone] CBC W/Automated 01/08/2016 [facility] White Blood 9.8 K/uL N 3.1-10.7 [address] [place] [address] [phone] Red Blood Count 4.40 M/uL N 3.90-5.40 Hemoglobin 14.1 gm/dL N 11.6-15.8 Hematocrit 43.5 % N 36.0-46.1 Mean Cell Volume 98.9 fl N 80.9-99.0 Mean Corpuscular HGB 32.0 pg N 25.9-32.7 Mean Corpuscular HGB Conc 32.4 g/dL N 30.8-34.3 Platelet Count 260 K/uL N 155-360 Red Cell Distri Width SD 49.7 fl High 3-47 Red Cell Distri Width %CV 14.0 % N 11.7-14.4 Mean Platelet Volume 11.3 fL N 8.9-12.4 Neut% 78.2 % High 40.4-72.8 Lymph % 10.9 % Low 17.0-46.1 [place] % 7.7 % N 4.3-13.2 Eo% 2.8 % N 0.0-6.6 Bas% 0.4 % N 0.0-1.1 Neut# 7.67 K/uL High 1.8-7.0 Lymph # 1.07 K/uL Low 1.8-7.0 [place] # 0.75 K/uL N 0.3-0.9 Eos # 0.27 K/uL N 0.0-0.5 Baso # 0.04 K/uL N 0.0-0.1 Comprehensive Metabolic 01/08/2016 [facility] Glucose 113 mg/dL High 74-106 Panel [address] [place] [address] [phone] BUN 10 mg/dL N 7-18 Creatinine 0.8 mg/dL N 0.6-1.3 Glom Filtration Rate, Estimate >60 mL/min N >60 If >60 mL/min N >60 56 BUN/Creat 12.5 ratio N Sodium 139 mmol/L N 136-145 Potassium 4.3 mmol/L N 3.5-5.1 Chloride 102 mmol/L N 98-107 Carbon Dioxide 30 mmol/L N 21-32 Anion Gap 7 mEq/L Low 8-16 Calcium 8.9 mg/dL N 8.5-10.1 Total Protein 7.7 g/dL N 6.4-8.2 Albumin 3.5 g/dL N 3.4-5.0 Globulin 4.2 g/dL N 1.9-4.3 Alb/Glob 0.8 ratio N Bilirubin,Total 0.3 mg/dL N 0.2-1.0 Sgot/Ast 18 U/L N 15-37 SGPT/Alt 27 U/L N 12-78 Alkaline Phosphatase 95 U/L N 45-117 Laboratory test 01/08/2016 [facility] Ferritin 45 ng/mL N 8-252 finding [address] [place] [address] [phone] LDL Cholesterol 01/08/2016 [facility] Cholesterol 177 mg/dL N <200 57 Profile [address] [place] [address] [phone] Triglycerides 143 mg/dL N <150 58 HDL Cholesterol 34 mg/dL Low >40 59 LDL-Cholesterol 114 mg/dL N < 100 60 Laboratory test 01/08/2016 [facility] Vitamin 41.9 N 30.0-100.0 [address] D,25-Hydroxy ng/[place] [address] [phone] Slide Review 01/08/2016 [facility] Slide Review . N [address] [place] [address] [phone] Laboratory test 10/01/2015 [facility] Gastric See Note [address] Biopsy/[place] [address] [phone] Laboratory test 07/03/2015 [facility] Slide Review . [address] [place] [address] [phone] CBC W/Automated 07/03/2015 [facility] White Blood 10.0 K/uL 3.1-10.[address] [place] [address] [phone] Red Blood Count 4.49 M/uL 3.90-5.40 Hemoglobin 14.1 gm/dL 11.6-15.8 Hematocrit 43.4 % 36.0-46.1 Mean Cell Volume 96.7 fl 80.9-99.0 Mean Corpuscular HGB 31.4 pg 25.9-32.7 Mean Corpuscular HGB Conc 32.5 g/dL 30.8-34.3 Platelet Count 262 K/uL 155-360 Red Cell Distri Width SD 51.3 fl High 3-47 Red Cell Distri Width %CV 14.8 % High 11.7-14.4 Mean Platelet Volume 10.7 fL 8.9-12.4 Neut% 75.7 % High 40.4-72.8 Lymph % 14.6 % Low 17.0-46.1 [place] % 6.7 % 4.3-13.2 Eo% 2.7 % 0.0-6.6 Bas% 0.3 % 0.0-1.1 Neut# 7.60 K/uL High 1.8-7.0 Lymph # 1.47 K/uL Low 1.8-7.0 [place] # 0.67 K/uL 0.3-0.9 Eos # 0.27 K/uL 0.0-0.5 Baso # 0.03 K/uL 0.0-0.1 Comprehensive Metabolic 07/03/2015 [facility] Glucose 95 mg/dL 74-106 Panel [address] [place] [address] [phone] BUN 9 mg/dL 7-18 Creatinine 0.8 mg/dL 0.6-1.3 Glom Filtration Rate, Estimate >60 mL/min >60 If >60 mL/min >60 65 BUN/Creat 11.2 ratio Sodium 136 mmol/L 136-145 Potassium 4.2 mmol/L 3.5-5.1 Chloride 102 mmol/L 98-107 Carbon Dioxide 30 mmol/L 21-32 Anion Gap 4 mEq/L Low 8-16 Calcium 9.5 mg/dL 8.5-10.1 Total Protein 8.4 g/dL High 6.4-8.2 Albumin 3.6 g/dL 3.4-5.0 Globulin 4.8 g/dL High 1.9-4.3 Alb/Glob 0.8 ratio Bilirubin,Total 0.4 mg/dL 0.2-1.0 Sgot/Ast 15 U/L 15-37 SGPT/Alt 27 U/L 12-78 Alkaline Phosphatase 92 U/L 45-117 Laboratory test 06/18/2015 [facility] Slide Review . 66 finding [address] [place] [address] [phone] CBC W/Automated 06/18/2015 [facility] White Blood 10.1 K/uL 3.1-10.7 Diff [address] [place] [address] [phone] Red Blood Count 4.54 M/uL 3.90-5.40 Hemoglobin 14.2 gm/dL 11.6-15.8 Hematocrit 42.6 % 36.0-46.1 Mean Cell Volume 93.8 fl 80.9-99.0 Mean Corpuscular HGB 31.3 pg 25.9-32.7 Mean Corpuscular HGB Conc 33.3 g/dL 30.8-34.3 Platelet Count 302 K/uL 155-360 Red Cell Distri Width SD 49.0 fl High 3-47 Red Cell Distri Width %CV 14.6 % High 11.7-14.4 Mean Platelet Volume 10.7 fL 8.9-12.4 Neut% 77.6 % High 40.4-72.8 Lymph % 13.2 % Low 17.0-46.1 [place] % 7.2 % 4.3-13.2 Eo% 1.6 % 0.0-6.6 Bas% 0.4 % 0.0-1.1 Neut# 7.85 K/uL High 1.8-7.0 Lymph # 1.33 K/uL Low 1.8-7.0 [place] # 0.73 K/uL 0.3-0.9 Eos # 0.16 K/uL 0.0-0.5 Baso # 0.04 K/uL 0.0-0.1 Comprehensive Metabolic 06/18/2015 [facility] Glucose 102 mg/dL 74-106 Panel [address] [place] [address] [phone] BUN 8 mg/dL 7-18 Creatinine 0.6 mg/dL 0.6-1.3 Glom Filtration Rate, Estimate >60 mL/min >60 If >60 mL/min >60 67 BUN/Creat 13.3 ratio Sodium 132 mmol/L Low 136-145 Potassium 3.2 mmol/L Low 3.5-5.1 Chloride 95 mmol/L Low 98-107 Carbon Dioxide 30 mmol/L 21-32 Anion Gap 7 mEq/L Low 8-16 Calcium 9.5 mg/dL 8.5-10.1 Total Protein 8.2 g/dL 6.4-8.2 Albumin 3.8 g/dL 3.4-5.0 Globulin 4.4 g/dL High 1.9-4.3 Alb/Glob 0.9 ratio Bilirubin,Total 0.7 mg/dL 0.2-1.0 Sgot/Ast 15 U/L 15-37 SGPT/Alt 24 U/L 12-78 Alkaline Phosphatase 82 U/L 45-117 Urinalysis With Microscopic 03/15/2015 [facility] Urine Color RED Yellow [address] [place] [address] [phone] Urine Clarity TURBID Clear Urine Glucose - Dipstick 100 mg/dL High Negative Urine Bilirubin - Dipstick MODERATE High Negative Urine Ketone 15 mg/dL High Negative Urine Specific [place] 1.015 1.010-1.030 Urine Blood LARGE High Negative Urine PH 6.5 6.5-7.5 Urine Protein - Dipstick >=300 mg/dL High Negative Urine Urobilinogen - Dipstick 1.0 E.U./dL 0.2-1.0 Urine Nitrite - Dipstick POSITIVE High Negative Urine Leuk Esterase MODERATE High Negative Urine RBC TNTC rbc/hpf High 0-2 Urine WBC 2-5 wbc/hpf 0-7 Urine Epithelial Cells VERY FEW NONESEEN/lpf Urine Bacteria FEW NONESEEN Laboratory test 03/15/2015 [facility] Culture If See Note [address] [place] [address] [phone] Ua RFX Micro + Culture II See Note 69 Urine Culture See Note 70 Laboratory test 03/15/2015 N2N/CCD Import Urine Bilirubin Moderate High Negative finding Urine Culture Reflexed Culture To Follow Urine Glucose (Ua) 100 High Negative Urine Ketones 15 High Negative Urine Leukocyte Esterase Moderate High Negative Urine Nitrite Positive High Negative Urine Urobilinogen 1.0 0.2-1.0 Comprehensive Metabolic 03/12/2015 [facility] Glucose 114 mg/dL High 74-[address] [place] [address] [phone] BUN 11 mg/dL 7-18 Creatinine 0.7 mg/dL 0.6-1.3 Glom Filtration Rate, Estimate >60 mL/min >60 If >60 mL/min >60 71 BUN/Creat 15.7 ratio Sodium 138 mmol/L 136-145 Potassium 4.2 mmol/L 3.5-5.1 Chloride 101 mmol/L 98-107 Carbon Dioxide 29 mmol/L 21-32 Anion Gap 8 mEq/L 8-16 Calcium 9.9 mg/dL 8.5-10.1 Total Protein 8.7 g/dL High 6.4-8.2 Albumin 3.9 g/dL 3.4-5.0 Globulin 4.8 g/dL High 1.9-4.3 Alb/Glob 0.8 ratio Bilirubin,Total 0.4 mg/dL 0.2-1.0 Sgot/Ast 20 U/L 15-37 SGPT/Alt 30 U/L 12-78 Alkaline Phosphatase 101 U/L 45-117 CBC W/Automated 03/12/2015 [facility] White Blood 10.0 K/uL 3.1-10.[address] [place] [address] [phone] Red Blood Count 4.90 M/uL 3.90-5.40 Hemoglobin 15.4 gm/dL 11.6-15.8 Hematocrit 47.0 % High 36.0-46.1 Mean Cell Volume 95.9 fl 80.9-99.0 Mean Corpuscular HGB 31.4 pg 25.9-32.7 Mean Corpuscular HGB Conc 32.8 g/dL 30.8-34.3 Platelet Count 254 K/uL 155-360 Red Cell Distri Width SD 49.7 fl High 3-47 Red Cell Distri Width %CV 14.6 % High 11.7-14.4 Mean Platelet Volume 10.7 fL 8.9-12.4 Neut% 76.3 % High 40.4-72.8 Lymph % 13.1 % Low 17.0-46.1 [place] % 7.5 % 4.3-13.2 Eo% 2.8 % 0.0-6.6 Bas% 0.3 % 0.0-1.1 Neut# 7.61 K/uL High 1.0-7.0 Lymph # 1.31 K/uL Low 1.8-7.0 [place] # 0.75 K/uL 0.3-0.9 Eos # 0.28 K/uL 0.0-0.5 Baso # 0.03 K/uL 0.0-0.1 Laboratory test 03/12/2015 N2N/CCD Import Basophils # (Auto) 0.03 0.0- 0.1 finding Basophils (%) (Auto) 0.3 0.0-1.1 Eosinophils # (Auto) 0.28 0.0-0.5 Eosinophils (%) (Auto) 2.8 0.0-6.6 Lymphocytes # (Auto) 1.31 Low 1.8-7.0 Lymphocytes (%) (Auto) 13.1 Low 17.0-46.1 Monocytes # (Auto) 0.75 0.3-0.9 Monocytes (%) (Auto) 7.5 4.3-13.2 Neutrophils # (Auto) 7.61 High 1.0-7.0 Neutrophils (%) (Auto) 76.3 High 40.4-72.8 RDW Coefficient of Variation 14.6 High 11.7-14.4 Red Cell Distribution Width 49.7 High 3-47 Sodium Level 138 136-145 1 URINE, CLEAN CATCH 2 CULTURE TO FOLLOW 3 URINE, CLEAN CATCH 4 ESCHERICHIA COLI 5 > 100,000 CFU/mL 6 10,000 - 50,000 CFU/mL 7 E78.5 8 Note: Persistent reduction for 3 months or more in an eGFR <60 mL/min/1.73 m2 defines CKD. Patients with eGFR values >/=60 mL/min/1.73 m2 may also have CKD if evidence of persistent proteinuria is present. The original MDRD equation for estimated GFR is not valid for patients less than 18 years of age. Additional information may be found at www.[email or web address]. 9 Reference Guidelines*: Desirable: ........... < 200 mg/dL Borderline High: ..... 200-239 mg/dL High: ................ >=240 mg/dL * The National Cholesterol Education Program (NCEP) 10 Reference Guidelines*: Normal: ............. < 150 mg/dL Borderline High: .... 150-199 mg/dL High: ............... 200-499 mg/dL Very High: .......... > 500 mg/dL * Source: National Cholesterol Education Program (NCEP) 11 Reference Guidelines*: Low HDL: ..... < 40 mg/dL Normal: ..... 40-60 mg/dL Desirable: ... > 60 mg/dL *The National Cholesterol Education Program(NCEP) 12 Reference Guidelines*: Optimal:........... <100 mg/dL Near Optimal....... 100-129 mg/dL Borderline High.... 130-159 mg/dL High............... 160-189 mg/dL Very High.......... >=190 mg/dL * Source: National Cholesterol Education Program (NCEP) 13 K50.10 14 E78.5 R73.9 K50.10 15 Note: Persistent reduction for 3 months or more in an eGFR <60 mL/min/1.73 m2 defines CKD. Patients with eGFR values >/=60 mL/min/1.73 m2 may also have CKD if evidence of persistent proteinuria is present. The original MDRD equation for estimated GFR is not valid for patients less than 18 years of age. Additional information may be found at www.[email or web address]. 16 Reference Guidelines*: Desirable: ........... < 200 mg/dL Borderline High: ..... 200-239 mg/dL High: ................ >=240 mg/dL * The National Cholesterol Education Program (NCEP) 17 Reference Guidelines*: Normal: ............. < 150 mg/dL Borderline High: .... 150-199 mg/dL High: ............... 200-499 mg/dL Very High: .......... > 500 mg/dL * Source: National Cholesterol Education Program (NCEP) 18 Reference Guidelines*: Low HDL: ..... < 40 mg/dL Normal: ..... 40-60 mg/dL Desirable: ... > 60 mg/dL *The National Cholesterol Education Program(NCEP) 19 Reference Guidelines*: Optimal:........... <100 mg/dL Near Optimal....... 100-129 mg/dL Borderline High.... 130-159 mg/dL High............... 160-189 mg/dL Very High.......... >=190 mg/dL * Source: National Cholesterol Education Program (NCEP) 20 Elevated levels of HbA1c suggest the need for more aggressive treatment of glycemia. The [place] [employer] recommends that a primary goal of therapy should be a HbA1c of <7% and that physicians should re-evaluate the treatment regimen in patients with HbA1c values consistently >8%. 21 I10 E78.5 R73.9 K50.10 22 Reference Guidelines*: Desirable: ........... < 200 mg/dL Borderline High: ..... 200-239 mg/dL High: ................ >=240 mg/dL * The National Cholesterol Education Program (NCEP) 23 Reference Guidelines*: Normal: ............. < 150 mg/dL Borderline High: .... 150-199 mg/dL High: ............... 200-499 mg/dL Very High: .......... > 500 mg/dL * Source: National Cholesterol Education Program (NCEP) 24 Reference Guidelines*: Low HDL: ..... < 40 mg/dL Normal: ..... 40-60 mg/dL Desirable: ... > 60 mg/dL *The National Cholesterol Education Program(NCEP) 25 Reference Guidelines*: Optimal:........... <100 mg/dL Near Optimal....... 100-129 mg/dL Borderline High.... 130-159 mg/dL High............... 160-189 mg/dL Very High.......... >=190 mg/dL * Source: National Cholesterol Education Program (NCEP) 26 Elevated levels of HbA1c suggest the need for more aggressive treatment of glycemia. The [place] [employer] recommends that a primary goal of therapy should be a HbA1c of <7% and that physicians should re-evaluate the treatment regimen in patients with HbA1c values consistently >8%. 27 Note: Persistent reduction for 3 months or more in an eGFR <60 mL/min/1.73 m2 defines CKD. Patients with eGFR values >/=60 mL/min/1.73 m2 may also have CKD if evidence of persistent proteinuria is present. The original MDRD equation for estimated GFR is not valid for patients less than 18 years of age. Additional information may be found at www.[email or web address]. 28 K50.10,E55.9,E78.5 29 Reference Guidelines*: Desirable: ........... < 200 mg/dL Borderline High: ..... 200-239 mg/dL High: ................ >=240 mg/dL * The National Cholesterol Education Program (NCEP) 30 Reference Guidelines*: Normal: ............. < 150 mg/dL Borderline High: .... 150-199 mg/dL High: ............... 200-499 mg/dL Very High: .......... > 500 mg/dL * Source: National Cholesterol Education Program (NCEP) 31 Reference Guidelines*: Low HDL: ..... < 40 mg/dL Normal: ..... 40-60 mg/dL Desirable: ... > 60 mg/dL *The National Cholesterol Education Program(NCEP) 32 Reference Guidelines*: Optimal:........... <100 mg/dL Near Optimal....... 100-129 mg/dL Borderline High.... 130-159 mg/dL High............... 160-189 mg/dL Very High.......... >=190 mg/dL * Source: National Cholesterol Education Program (NCEP) 33 Vitamin D deficiency has been defined by the [place] [employer] and an Endocrine Society practice guideline as a level of serum 25-OH vitamin D less than 20 ng/mL (1,2). The Endocrine Society went on to further define vitamin D insufficiency as a level between 21 and 29 ng/mL (2). 1. IOM ([place] [employer]). 2010. Dietary reference intakes for calcium and D. [place]: The National Academies Press. 2. Silas MF, Tera NC, Reymundo VELAZQUEZ, et al. Evaluation, treatment, and prevention of vitamin D deficiency: an Endocrine Society clinical practice guideline. JCEM. 2010; 96(7):1911-30. Performed at: RN - [facility] [address] [id number] Web Graphic Designer: Elvia Florence MD, Phone: [phone] 34 Note: Persistent reduction for 3 months or more in an eGFR <60 mL/min/1.73 m2 defines CKD. Patients with eGFR values >/=60 mL/min/1.73 m2 may also have CKD if evidence of persistent proteinuria is present. The original MDRD equation for estimated GFR is not valid for patients less than 18 years of age. Additional information may be found at www.[email or web address]. 35 K50.10 36 Note: Persistent reduction for 3 months or more in an eGFR <60 mL/min/1.73 m2 defines CKD. Patients with eGFR values >/=60 mL/min/1.73 m2 may also have CKD if evidence of persistent proteinuria is present. The original MDRD equation for estimated GFR is not valid for patients less than 18 years of age. Additional information may be found at www.[email or web address]. 37 Instrument flagged sample for slide review. Less than 10% Bands seen, no other immature WBC's seen. RBC morphology essentially normal. Platelet estimate=NORMAL 38 Method: Sediplast Modified Westergren 39 Negative 0 - 19 Weak Positive 20 - 30 Moderate to Strong Positive >30 40 Negative 0 - 19 Weak Positive 20 - 30 Moderate to Strong Positive >30 41 Negative 0 - 3 Weak Positive 4 - 10 Positive >10 Tissue Transglutaminase (tTG) has been identified as the endomysial antigen. Studies have demonstr- ated that endomysial IgA antibodies have over 99% specificity for gluten sensitive enteropathy. 42 Negative 0 - 5 Weak Positive 6 - 9 Positive >9 43 The atypical pANCA pattern has been observed in a significant percentage of patients with ulcerative colitis, primary sclerosing cholangitis and autoimmune hepatitis. ASCA+/PANCA- Suggestive of Crohn's disease ASCA-/PANCA+ Suggestive of Ulcerative colitis 44 Negative <20.0 Equivocal 20.1 - 24.9 Positive >or=25.0 45 Negative <20.0 Equivocal 20.1 - 24.9 Positive >or=25.0 IgA and IgG antibody testing for S. cerevisiae is useful adjunct testing for differentiating Crohn's disease and ulcerative colitis. Close to 80% of Crohn's disease patients are positive for either IgA or IgG. In ulcerative colitis, less than 15% are positive for IgG and less than 2% are positive for IgA. Fewer than 5% are positive for either IgG or IgA antibody, and no healthy controls had antibody for both. Performed at: - [facility] [id number] Web Graphic Designer: Elvia Florence MD, Phone: [phone] Performed at: - [facility] [id number] Web Graphic Designer: Juan David Us MD, Phone: [phone] 46 K50.10 K21.9 Z87.440 47 Note: Persistent reduction for 3 months or more in an eGFR <60 mL/min/1.73 m2 defines CKD. Patients with eGFR values >/=60 mL/min/1.73 m2 may also have CKD if evidence of persistent proteinuria is present. The original MDRD equation for estimated GFR is not valid for patients less than 18 years of age. Additional information may be found at www.[email or web address]. 48 I10 K50.10 K21.9 49 Note: Persistent reduction for 3 months or more in an eGFR <60 mL/min/1.73 m2 defines CKD. Patients with eGFR values >/=60 mL/min/1.73 m2 may also have CKD if evidence of persistent proteinuria is present. The original MDRD equation for estimated GFR is not valid for patients less than 18 years of age. Additional information may be found at [email or web address]. 50 04/16/16 1301: NEUT% previously reported as: 77.1 H % Amended result called to: [] 04/16/16 at 1301 04/16/16 1301: LYMPH % previously reported as: 8.3 L % Amended result called to: [] 04/16/16 at 1301 04/16/16 1301: MONO % previously reported as: 8.5 % Amended result called to: [] 04/16/16 at 1301 04/16/16 1301: EO% previously reported as: 5.7 % Amended result called to: [] 04/16/16 at 1301 04/16/16 1301: BAS% previously reported as: 0.4 % Amended result called to: [] 04/16/16 at 1301 51 I10 K50.10 52 Note: Persistent reduction for 3 months or more in an eGFR <60 mL/min/1.73 m2 defines CKD. Patients with eGFR values >/=60 mL/min/1.73 m2 may also have CKD if evidence of persistent proteinuria is present. The original MDRD equation for estimated GFR is not valid for patients less than 18 years of age. Additional information may be found at www.[email or web address]. 53 Values below the stated reference ranges of AST and ALT can be seen in normal populations. Clinical correlation is suggested. 54 Instrument flagged sample for slide review. Less than 10% Bands seen, no other immature WBC's seen. RBC morphology essentially normal. Platelet estimate=NORMAL 55 K50.10 I10 Z78.0 E55.9 56 Note: Persistent reduction for 3 months or more in an eGFR <60 mL/min/1.73 m2 defines CKD. Patients with eGFR values >/=60 mL/min/1.73 m2 may also have CKD if evidence of persistent proteinuria is present. The original MDRD equation for estimated GFR is not valid for patients less than 18 years of age. Additional information may be found at www.[email or web address]. 57 Reference Guidelines*: Desirable: ........... < 200 mg/dL Borderline High: ..... 200-239 mg/dL High: ................ >=240 mg/dL * The National Cholesterol Education Program (NCEP) 58 Reference Guidelines*: Normal: ............. < 150 mg/dL Borderline High: .... 150-199 mg/dL High: ............... 200-499 mg/dL Very High: .......... > 500 mg/dL * Source: National Cholesterol Education Program (NCEP) 59 Reference Guidelines*: Low HDL: ..... < 40 mg/dL Normal: ..... 40-60 mg/dL Desirable: ... > 60 mg/dL *The National Cholesterol Education Program(NCEP) 60 Reference Guidelines*: Optimal:........... <100 mg/dL Near Optimal....... 100-129 mg/dL Borderline High.... 130-159 mg/dL High............... 160-189 mg/dL Very High.......... >=190 mg/dL * Source: National Cholesterol Education Program (NCEP) 61 Vitamin D deficiency has been defined by the [place] [employer] and an Endocrine Society practice guideline as a level of serum 25-OH vitamin D less than 20 ng/mL (1,2). The Endocrine Society went on to further define vitamin D insufficiency as a level between 21 and 29 ng/mL (2). 1. IOM ([place] [employer]). 2010. Dietary reference intakes for calcium and D. [place]: The National Academies Press. 2. Silas MF, Tera MMCILLAN, Reymundo VELAZQUEZ, et al. Evaluation, treatment, and prevention of vitamin D deficiency: an Endocrine Society clinical practice guideline. JCEM. 2010; 96(7):1911-30. Performed at: RN - [facility] [address] [id number] Web Graphic Designer: Elvia Florence MD, Phone: [phone] 62 Instrument flagged sample for slide review. Less than 10% Bands seen, no other immature WBC's seen. RBC morphology essentially normal. Platelet estimate=NORMAL 63 OPERATION/PROCEDURE Colonoscopy with polypectomy. DIAGNOSIS: PART 1: "COLON, CECUM, BIOPSY": - CHRONIC INACTIVE COLITIS. - NO GRANULOMATA SEEN. - NEGATIVE FOR DYSPLASIA. PART 2: "COLON, ASCENDING, BIOPSY": - CHRONIC INACTIVE COLITIS. - NO GRANULOMATA SEEN. - NEGATIVE FOR DYSPLASIA. PART 3: "COLON, TRANSVERSE, BIOPSY": - TUBULAR ADENOMA. - NO HIGH-GRADE DYSPLASIA OR MALIGNANCY. PART 4: "COLON, TRANSVERSE, BIOPSY": - CHRONIC INACTIVE COLITIS. - NO GRANULOMATA SEEN. - NEGATIVE FOR DYSPLASIA. PART 5: "COLON, SPLENIC FLEXURE, BIOPSY": - CHRONIC, INACTIVE COLITIS. - NO GRANULOMATA SEEN. - NEGATIVE FOR DYSPLASIA. PART 6: "COLON, DESCENDING, BIOPSY": - CHRONIC, INACTIVE COLITIS. DIAGNOSIS: (Continued) - NO GRANULOMATA SEEN. - NEGATIVE FOR DYSPLASIA. PART 7: "COLON, SPLENIC FLEXURE, BIOPSY": - HYPERPLASTIC POLYP. PART 8: "COLON, SIGMOID, BIOPSY": - CHRONIC, INACTIVE COLITIS. - NO GRANULOMATA SEEN. - NEGATIVE FOR DYSPLASIA. PART 9: "COLON, SIGMOID, BIOPSY": - TUBULAR ADENOMA. - NO HIGH-GRADE DYSPLASIA OR MALIGNANCY. PART 10: "COLON, RECTUM, BIOPSY": - HYPERPLASTIC POLYP. PART 11: "ESOPHAGUS, BIOPSY": - SQUAMOUS AND COLUMNAR MUCOSA WITH CHRONIC INFLAMMATION. - NEGATIVE FOR INTESTINAL METAPLASIA AND DYSPLASIA. PART 12: "STOMACH, BIOPSY": - POLYPOID PORTION OF BODY-TYPE GASTRIC MUCOSA WITH NO SIGNIFICANT PATHOLOGIC ABNORMALITIES. EP/clf 1600 GROSS Received in formalin in eleven properly labeled containers with the patient' s name and accession number. Part one is designated, "CECUM BIOPSIES". The specimen consists of multiple pieces of harris, soft rubbery tissue measuring 0.4 x 0.3 x 0.2 cm. in aggregate. Submitted entirely, one cassette. Part two is designated, "ASCENDING COLON BIOPSIES". The specimen consists of multiple pieces of harris, soft rubbery tissue measuring 0.5 x 0.4 x 0.2 cm. in aggregate. Submitted entirely, one cassette. Part three is designated, "TRANSVERSE POLYP, SNARED". The specimen consists of a single piece of harris, soft rubbery tissue measuring 0.4 x 0.4 x 0.2 cm. Submitted entirely, one cassette. Part four is designated, "TRANSVERSE BIOPSIES". The specimen consists of multiple pieces of harris, soft rubbery tissue measuring 0.4 x 0.4 x 0.2 cm. in aggregate. Submitted entirely, one cassette. Part five is designated, "SPLENIC FLEXURE BIOPSIES". The specimen consists of multiple GROSS (Continued) pieces of harris, soft rubbery tissue measuring 0.5 x 0.3 x 0.2 cm. in aggregate. Submitted entirely, one cassette. Part six is designated, "DESCENDING COLON BIOPSIES". The specimen consists of multiple pieces of harris, soft rubbery tissue measuring 0.4 x 0.3 x 0.2 cm. in aggregate. Submitted entirely, one cassette. Part seven is designated, "SPLENIC FLEXURE POLYP, SNARED". The specimen consists of a single piece of harris, soft rubbery tissue measuring 0.3 x 0.3 x 0.3 cm. Submitted entirely, one cassette. Part eight is designated, "SIGMOID BIOPSIES". The specimen consists of multiple pieces of harris, soft rubbery tissue measuring 0.8 x 0.6 x 0.3 cm. in aggregate. Submitted entirely, one cassette. Part nine is designated, "SIGMOID POLYPS SNARED AND BIOPSY". The specimen consists of multiple pieces of harris, soft rubbery tissue measuring 1.0 x 1.0 x 0.2 cm. in aggregate. Submitted entirely, one cassette. Part ten is designated, "RECTAL POLYPS". The specimen consists of a single piece of harris, soft rubbery tissue measuring 0.4 x 0.3 x 0.2 cm. Submitted entirely, one cassette. Part eleven is designated, "ESOPHAGEAL BIOPSIES". The specimen consists of multiple pieces of harris, soft rubbery tissue measuring 0.6 x 0.4 x 0.2 cm. in aggregate. Submitted entirely, one cassette. Part twelve is designated, "GASTRIC POLYP, SNARED". The specimen consists of a single piece of harris, soft rubbery tissue measuring 0.5 x 0.4 x 0.3 cm. Submitted entirely, one cassette. CC/clf PRE OPERATIVE DIAGNOSIS History of Crohn's, GERD, polyps. REVIEW CODE CODE: I Signed Electronically signed Zaki BORJAS MD [id number] Instrument flagged sample for slide review. Less than 10% Bands seen, no other immature WBC's seen. RBC morphology essentially normal. Platelet estimate=NORMAL 65 Note: Persistent reduction for 3 months or more in an eGFR <60 mL/min/1.73 m2 defines CKD. Patients with eGFR values >/=60 mL/min/1.73 m2 may also have CKD if evidence of persistent proteinuria is present. The original MDRD equation for estimated GFR is not valid for patients less than 18 years of age. Additional information may be found at www.[email or web address]. 66 Instrument flagged sample for slide review. Less than 10% Bands seen, no other immature WBC's seen. RBC morphology essentially normal. Platelet estimate=NORMAL 67 Note: Persistent reduction for 3 months or more in an eGFR <60 mL/min/1.73 m2 defines CKD. Patients with eGFR values >/=60 mL/min/1.73 m2 may also have CKD if evidence of persistent proteinuria is present. The original MDRD equation for estimated GFR is not valid for patients less than 18 years of age. Additional information may be found at [email or web address]. 68 CULTURE TO FOLLOW 69 03/15/15 [email or web address] Deleted by [facility] [place] 70 Organism 1 ! ESCHERICHIA COLI Quantity ! > 100,000 CFU/mL Organism 2 ! URETHRAL CRISTY Quantity ! 50,000 - 100,000 CFU/mL ESCHERICHIA COLI Target Route Dose M.I.C. RX AB COST ------ ----- -------- ------ -- ------ NITROFURANTOIN <=16 S TRIMETHOPRIM/SULFAMETHOXAZOLE <=20 S AMPICILLIN 8 S CEFAZOLIN <=4 S AMPICILLIN/SULBACTAM 4 S CIPROFLOXACIN <=0.25 S PIPERACILLIN/TAZOBACTAM <=4 S CEFTAZIDIME <=1 S CEFTRIAXONE <=1 S CEFEPIME <=1 S LEVOFLOXACIN <=0.12 S IMIPENEM <=0.25 S GENTAMICIN <=1 S TOBRAMYCIN <=1 S 71 Note: Persistent reduction for 3 months or more in an eGFR <60 mL/min/1.73 m2 defines CKD. Patients with eGFR values >/=60 mL/min/1.73 m2 may also have CKD if evidence of persistent proteinuria is present. The original MDRD equation for estimated GFR is not valid for patients less than 18 years of age. Additional information may be found at [email or web address]. Procedures Date Code Description Status 02/26/2018 92469 Remove Impact Cerumen Irrigati Completed 02/20/2018 [id number] Bone Mineral Density Test Completed 02/20/2018 [id number] Mammogram Completed 03/05/2017 [id number] Mammogram Completed 01/28/2017 [id number] Colonoscopy Completed 01/28/2017 89060 Colonoscopy With Biopsy Completed 01/12/2017 92418 Pressurized/Non-Pressurized Inhalation Treatment,Acute Completed Obstructio 12/03/2016 [id number] Colonoscopy Completed 12/03/2016 48535 Colonoscopy With Biopsy Completed 07/10/2016 99084 Remove Impact Cerumen Irrigati Completed 06/25/2016 99326 Radiology, Shoulder: Two Views (Sso) Completed 06/25/2016 05897 Radiology, Shoulder: Two Views (Sso) Completed 04/04/2016 37968 Pressurized/Non-Pressurized Inhalation Treatment,Acute Completed Obstructio 03/26/2016 73291 Bronchospasm Provocation Evaluation Multi Spirometric Completed Determinati 03/26/2016 10925 Spirometry Completed 10/01/2015 78551 Colonoscopy With Polypectomy Completed 10/01/2015 33727 Colonoscopy With Biopsy Forceps Completed 10/01/2015 35998 EGD With Biopsy Completed 09/21/2015 [id number] Colonoscopy Completed 09/14/2015 96703 Remove Impacted Cerumen Completed 06/19/2015 21469 Remove Impacted Cerumen Completed 10/02/2014 [id number] Colonoscopy Completed 10/02/2014 87569 Conscious Sedation For Colonsocopy Completed 05/05/2014 [id number] Mammogram Completed 04/15/2013 [id number] Mammogram Completed 11/01/2012 17694 xray spine cervical min 4 views Completed 11/01/2012 93253 Radiology, Shoulder: Two Views (Sso) Completed 12/31/2007 62226 Asp./Injection major joint Completed 11/29/2007 06401 Radiology, Shoulder: Two Views (Sso) Completed 11/16/2007 94428 Remove Impacted Cerumen Completed 10/27/2007 36656 Remove Impacted Cerumen Completed 09/15/2007 17513 Remove Impacted Cerumen Completed 08/10/2007 61959 Remove Impacted Cerumen Completed 07/26/2007 34463 Colonoscopy With Polypectomy Completed 01/08/2007 56799 Remove Impacted Cerumen Completed Encounters Type Date Location Provider Dx Diagnosis Office Visit 03/19/2018 Primary Care Andrew Rivers30.9 Allergic rhinitis, 10:30a Office Jamila MS, unspecified [employer], CNM I10 Essential (primary) hypertension E78.5 Hyperlipidemia, unspecified R30.0 Dysuria R05 Cough Z71.6 Tobacco abuse counseling Z71.9 Counseling, unspecified Office Visit 02/26/2018 10:00a Primary Care Jamila Rivers J06.9 Acute upper Office MS, [employer], CNM respiratory infection, unspecified R05 Cough J44.1 Chronic obstructive pulmonary disease w (acute) exacerbation M79.671 Pain in right foot Z71.6 Tobacco abuse counseling H61.23 Impacted cerumen, bilateral Office Visit 01/19/2018 3:30p Jermaine Molina MD K50.10 Crohn's disease of large intestine without complications Z72.0 Tobacco use Office Visit 12/23/2017 2:40p Primary Care Juhi Collins, E78.5 Hyperlipidemia, Office MD unspecified R73.9 Hyperglycemia, unspecified Z23 Encounter for immunization F41.9 Anxiety disorder, unspecified Office Visit 12/15/2017 Primary Care Dennise, J20.9 Acute bronchitis, 9:15a Office Nguyen Avalos unspecified Office Visit 05/12/2017 Pulmonology Lonny Krishnamurthy MD J44.9 Chronic 4:00p obstructive pulmonary disease, unspecified F17.210 Nicotine dependence, cigarettes, uncomplicated Z71.6 Tobacco abuse counseling Z12.2 Encntr screen for malignant neoplasm of respiratory organs Office Visit 05/04/2017 9:40a Primary Care Juhi Collins, I10 Essential ( primary) Office hypertension E78.5 Hyperlipidemia, unspecified R73.9 Hyperglycemia, unspecified K50.10 Crohn's disease of large intestine without complications J44.9 Chronic obstructive pulmonary disease, unspecified Office Visit 04/02/2017 3:20p Primary Care Arthur Toribio, B02.9 Zoster without Office M.D. complications R05 Cough J20.9 Acute bronchitis, unspecified J44.9 Chronic obstructive pulmonary disease, unspecified Office Visit 02/19/2017 2:15p Jermaine Molina K50.10 Crohn's disease of MD large intestine without complications Office Visit 01/30/2017 11:20a Primary Care Juhi Collins, I10 Essential ( primary) Office hypertension E78.5 Hyperlipidemia, unspecified R73.9 Hyperglycemia, unspecified M79.604 Pain in right leg J44.9 Chronic obstructive pulmonary disease, unspecified Z23 Encounter for immunization Office Visit 01/12/2017 1:00p Primary Care Juhi Collins, J44.1 Chronic obstructive Office MD pulmonary disease w (acute) exacerbation E78.5 Hyperlipidemia, unspecified F41.9 Anxiety disorder, unspecified Office Visit 01/08/2017 10:45a Jermaine Molina MD K63.5 Polyp of colon K50.10 Crohn's disease of large intestine without complications Office Visit 12/22/2016 11:20a Primary Care Arthur Toribio J44.9 Chronic Office MSowmya obstructive pulmonary disease, unspecified J20.9 Acute bronchitis, unspecified Office Visit 10/09/2016 1:30p Primary Care Lila Mishra J44.9 Chronic Office REINA Sena obstructive pulmonary disease, unspecified G47.33 Obstructive sleep apnea (adult) (pediatric) K50.10 Crohn's disease of large intestine without complications M25.512 Pain in left shoulder I10 Essential (primary) hypertension K21.9 Gastro-esophageal reflux disease without esophagitis Z23 Encounter for immunization E78.5 Hyperlipidemia, unspecified E55.9 Vitamin D deficiency, unspecified Office Visit 09/16/2016 1:45p Pulmonology Lonny Krishnamurthy MD J44.9 Chronic obstructive pulmonary disease, unspecified G47.33 Obstructive sleep apnea (adult) (pediatric) F17.210 Nicotine dependence, cigarettes, uncomplicated Z71.6 Tobacco abuse counseling Office Visit 08/05/2016 10:45a Jermaine Molina MD K50.10 Crohn's disease of large intestine without complications K63.5 Polyp of colon F17.200 Nicotine dependence, unspecified, uncomplicated Z71.6 Tobacco abuse counseling Office Visit 07/10/2016 1:00p Primary Care Lila Mishra M25.512 Pain in left Office REINA Sena shoulder H61.21 Impacted cerumen, right ear I10 Essential (primary) hypertension K21.9 Gastro-esophageal reflux disease without esophagitis K50.10 Crohn's disease of large intestine without complications Office Visit 06/25/2016 Orthopaedic Rustam, M19.012 Primary 9:00a Office Nguyen Johnson osteoarthritis, left shoulder M25.512 Pain in left shoulder Office Visit 06/02/2016 9:30a Primary Care Lila Mishra M25.512 Pain in left Office REINA Sena shoulder I10 Essential (primary) hypertension J44.9 Chronic obstructive pulmonary disease, unspecified M15.0 Primary generalized (osteo)arthritis K50.10 Crohn's disease of large intestine without complications Office Visit 04/09/2016 10:30a Primary Care Lila Mishra J44.9 Chronic Office REINA Sena obstructive pulmonary disease, unspecified I10 Essential (primary) hypertension M15.0 Primary generalized (osteo)arthritis K57.30 Dvrtclos of lg int w/o perforation or abscess w/o bleeding E78.5 Hyperlipidemia, unspecified K50.10 Crohn's disease of large intestine without complications K21.9 Gastro-esophageal reflux disease without esophagitis Z87.440 Personal history of urinary (tract) infections H61.23 Impacted cerumen, bilateral Office Visit 04/04/2016 3:20p Primary Care Juhi Collins, J20.9 Acute bronchitis, Office MD unspecified F17.210 Nicotine dependence, cigarettes, uncomplicated Office Visit 03/18/2016 1:45p Pulmonology Lonny Krishnamurthy MD J44.9 Chronic obstructive pulmonary disease, unspecified F17.210 Nicotine dependence, cigarettes, uncomplicated Z71.6 Tobacco abuse counseling Office Visit 01/07/2016 1:30p Primary Care Lila Mishra I10 Essential ( primary) Office REINA Sena hypertension M15.0 Primary generalized (osteo)arthritis E78.5 Hyperlipidemia, unspecified K57.30 Dvrtclos of lg int w/o perforation or abscess w/o bleeding K21.9 Gastro-esophageal reflux disease without esophagitis K50.10 Crohn's disease of large intestine without complications Z23 Encounter for immunization Office Visit 10/16/2015 2:45p Pulmonology Lonny Krishnamurthy, J43.2 Centrilobular MD emphysema G47.33 Obstructive sleep apnea (adult) (pediatric) F17.211 Nicotine dependence, cigarettes, in remission Office Visit 10/16/2015 1:30p GI Rick Kumari MD K50.10 Crohn's disease of large intestine without complications K22.4 Dyskinesia of esophagus K52.89 Other specified noninfective gastroenteritis and colitis K21.9 Gastro-esophageal reflux disease without esophagitis K57.30 Dvrtclos of lg int w/o perforation or abscess w/o bleeding Office Visit 09/14/2015 1:00p Primary Care Juhi Collins, H61.23 Impacted cerumen, Office MD bilateral Office Visit 08/29/2015 10:00a Primary Care Lila Mishra J01.90 Acute sinusitis, Office Jaida, PA-C unspecified I10 Essential (primary) hypertension K50.10 Crohn's disease of large intestine without complications K21.9 Gastro-esophageal reflux disease without esophagitis R13.10 Dysphagia, unspecified Office Visit 08/06/2015 1:30p Primary Care Lila Mishra I10 Essential ( primary) Office Jaida, PA-C hypertension Z87.440 Personal history of urinary (tract) infections K50.10 Crohn's disease of large intestine without complications M15.0 Primary generalized (osteo)arthritis E78.5 Hyperlipidemia, unspecified E87.6 Hypokalemia Z71.6 Tobacco abuse counseling F17.200 Nicotine dependence, unspecified, uncomplicated Office Visit 06/19/2015 2:30p Primary Care Lila Mishra I10 Essential ( primary) Office Jaida, PA-C hypertension Z87.440 Personal history of urinary (tract) infections K50.10 Crohn's disease of large intestine without complications M15.0 Primary generalized (osteo)arthritis E78.5 Hyperlipidemia, unspecified H61.23 Impacted cerumen, bilateral E87.6 Hypokalemia Office Visit 05/15/2015 3:30p GI Lila Mishra, N39.0 Urinary tract PA-C infection, site not specified I10 Essential (primary) hypertension K50.10 Crohn's disease of large intestine without complications M15.0 Primary generalized (osteo)arthritis E78.5 Hyperlipidemia, unspecified Office Visit 04/17/2015 1:00p Pulmonology Lonny Krishnamurthy, J43.2 Centrilobular MD emphysema F17.210 Nicotine dependence, cigarettes, uncomplicated G47.33 Obstructive sleep apnea (adult) (pediatric) Z71.6 Tobacco abuse counseling Office Visit 04/11/2015 3:00p Lila Prabhakar, I10 Essential ( primary) PA-C hypertension K50.10 Crohn's disease of large intestine without complications M15.0 Primary generalized (osteo)arthritis E78.5 Hyperlipidemia, unspecified Z87.440 Personal history of urinary (tract) infections Z23 Encounter for immunization Office Visit 11/15/2014 2:00p Pulmonology Lonny Krishnamurthy MD 496 COPD Airway Obstruction Chronic Not Class Elsewhere 305.1 Tobacco Use Disorder 327.23 Obstructive Sleep Apnea Adult & Pediatric Office Visit 11/10/2014 9:00a Rick Velasquez MD 278.00 Obesity Unspec 555.1 Enteritis Large Intestine 401.1 Hypertension Benign 715.00 Osteoarthrosis Generalized Site Unspec V03.82 Streptococcus Pneumoniae Vaccination Spec Other Office Visit 11/25/2012 3:00p Orthopaedic Office Juwan Boykin MD, FACS Office Visit 11/01/2012 10:00a Orthopaedic Office Juwan Boykin MD, FACS Office Visit 06/14/2008 2:15p Rick Velasquez, 530.81 Esophageal MD Reflux 401.1 Hypertension Benign Office Visit 06/09/2008 1:30p Rick Velasquez MD 496 COPD Airway Obstruction Chronic Not Class Elsewhere 278.00 Obesity Unspec Office Visit 01/13/2008 10:45a Drew Warner,D.O. H., DO Office Visit 01/07/2008 3:15p Drew Warner,D.O. H., DO Office Visit 01/05/2008 10:00a Drew Hsu, Drew Hsu,D.O. H., DO Office Visit 12/31/2007 1:45p Rick Velasquez MD Office Visit 11/29/2007 11:00a Drew Warner,D.O. H., DO Office Visit 11/16/2007 1:00p Rick Velasquez MD Office Visit 10/27/2007 10:45a Rick Velasquez MD Office Visit 09/15/2007 1:00p Rick Velasquez MD Office Visit 08/10/2007 10:15a Rick Velasquez MD 787.91 Diarrhea Office Visit 07/13/2007 10:15a Rick Velasquez MD Office Visit 05/20/2007 9:20a Rcik Velasquez MD Office Visit 01/08/2007 1:00p Rick Velasquez MD Plan of Treatment Future Appointment(s):07/02/2018 10:00 am - Gagen, Jamila, MS, [employer] FORMER-C, CNM at [facility] Bbzgot9407/20/2018 1:00 pm - Jermaine Balderas MD at GI04/28/2018 1:30 pm - Lonny Krishnamurthy MD at Ct[facility]wkmp99/11/2019 - Jamila Rivers, MS, [employer]-C, CNMI10 Essential (primary) hypertensionComments:--B/P 118/78, B/P well controlled-- Continue Ramipril 2.5 mg 1 by mouth every dayR30.0 DysuriaComments:--Dysuria [id number] CoughComments:--Continue to monitor-- Increase fluid intake to make mucous easier to expectorate----May use Guaifenesin (Mucinex) to thin mucous and make it easier to clear from the head, throat, and lungs --Expectorate sputum--May use cough drops--Rest--May use Vicks ' vaporub on chest, under nose for cough --Quit smoking. Avoid smoke filled rooms -- To use netti potN39.46 Mixed incontinenceNew Medication:Myrbetriq 25 mg - 1 by mouth every dayComments:--Will trial Myrbetriq --Monitor jhiztfpcZ71.2 Candidiasis of skin and nailNew Medication:Nystop [id number] Unit/GM - apply under breast area twice a dayZ12.4 Encounter for screening for malignant neoplasm of qujfowI29.5 Hyperlipidemia, unspecifiedNew Labs:CBC W/ Automated Diff, Scheduled: 06/22/18Comprehensive Metabolic Panel, Scheduled: 05/11Glycohemoglobin A1c, Scheduled: 06/22/18LDL Cholesterol Profile, Scheduled : 06/22/18Vitamin D,25-Hydroxy, Scheduled: 06/22/18Comments:-- Continue to work on diet, exercise. Will monitor labs on RTOF41.9 Anxiety disorder, unspecifiedComments:-- Patient taking Paroxetine HCL 20 mg 1 by mouth every day, Buspirone HCL 7.5 mg 1 tab by mouthtwice daily, Lorazepam 1 mg 1 by mouth every 8 hours as needed for anxiety-- Patient advised to goto counseling, number given--Monitor mood and report any changes. If SI/HI got to ER or call [id number] Counseling, unspecifiedComments:--Continue weight bearing exercise, diet rich in calcium, and vitamin D 3 gel capsules 1000 IU QDAY,as ordered.-- Patient advised to stop calcium and get her calcium through diet.--To get next BMD in 3 years --To prevent illness during the winter-good hand hygiene, vitamin C 1 GM QDAY, Zinc 30 mg poQDAY, maintain healthy diet, and exercise, as tolerated.Z71.6 Tobacco abuse counselingComments:---I highly encouraged patient to consider smoking cessation. Smoking is linked to a variety of health conditions such as hypertension, lung disease, as well as inflammatory disease. It is also linked to multiple cancers, not just lung cancer - it is also implicated in breast, colon and skin cancer.AllFollow up:--Return to office in 3 months. Please get fasting labs 1 week prior to office visit. --Please give info for [facility] for counseling
--- OUTSIDE RECORDS SUMMARY | 2018-04-24 10:29 | XMS REPORT | Continuity of Care Document ---
:1950 External Reference #:[id number] Author Name Jamila Rivers, MS, TUB OPERATOR-C, CNM Address [address] [place] [address] Care Team Providers Name Role Phone Juhi Collins MD Care Team Information Asset Protection Detective Unavailable Juhi Collins MD Primary Care Physician Unavailable Payers Type Date Identification Numbers Payment Provider Subscriber Policy Number: [id number] Medicare Carleen Brothers PayID: [id number] [address] [place] [address] Policy Number: [id number] [facility] Carleen Brothers PayID: [id number] [address] [place] [address] Advance Directives Description No Information Available Problems [...] Osteopenia Lila Mishra PA-C Active Note: DEXA 2016, Dr. Manzo. 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 Cigarette Use Pack Years - 50 ETOH Use Denies alcohol use Recreational Drug Use Denies Drug Use Tobacco Use Start: Unknown Heavy tobacco smoker (more than 10 cigarettes/day) Smoking Status Reviewed: 04/01/18 Heavy tobacco smoker (more than 10 cigarettes/day) Allergies, Adverse Reactions, Alerts Date Description Reaction Status Severity Comments 06/19/2015 Chlorthalidone hypokalemia, hyponatremia Active Severe at 25 mg dose 11/01/2012 NKDA Inactive Medications Medication Date Status Form Strength Qnty SIG Indications Ordering Provider Mucinex 03/19 Active Tablets ER 600mg 30tab take 1 R05 Gagen 12HR s every 12 Jazmine hours as e, MS, needed for TUB OPERATOR-C, congestion CNM with a full glass of water Nitrofurantoin 03/19 Active Capsules 100mg 14cap 1 by mouth R30.0 Gagen , Monohyd Macro s twice a day Jazmine e, MS, TUB OPERATOR-C, CNM Phenazopyridine 03/19 Active Tablets 200mg 6tabs give one R30.0 Gagen, HCL /2017 every three Jazmine times a day e, MS, TUB OPERATOR-C, CNM Fluticasone 03/19 Active Suspension 50mcg/Act 31.6m to use 1 or R30.0 Gagen, Propionate Nasal /2017 l 2 sprays in Jazmine Strong Allergy each e, MS, Relief 24- Hour nostril in TUB OPERATOR-C, am CNM Zyrtec Allergy 03/19 Active Capsules 10mg 30cap take one in R30.0 Gagen , s evening Jazmine e, MS, TUB OPERATOR-C, CNM Pravastatin 12/23 Active Tablets 40mg 90tab 1 tab by E78.5 Karina, s mouth every MD Juhi day Valacyclovir HCL 07/14 Active Tablets 500mg 20tab 1 tab twice Karina, s a day for MD Juhi 10 days Azathioprine 05/14 Active Tablets 50mg 360ta 4 tabs by Sherrie bs mouth once , Jermaine daily [phone] Bevespi 09/16 Active Aerosol 9-4.8mcg/ 32.1g 2 puffs R05 Kheti, Aerosphere Act m twice MD Lonny daily. please teach how to use medication. 1 Famotidine 07/10 Active Tablets 20mg 180ta 1 by mouth K21.9 Lima, bs twice a day Noe, as needed M.Daiana Bupropion HCL ER 07/01 Active Tablets ER 150mg 180ta 1 by mouth Tita, () 12HR bs twice a day Jazmine e, MS, TUB OPERATOR-C, CNM Ramipril 06/18 Active Capsules 2.5mg 90cap 1 by mouth I10 Gag, s every day Jazmine e, MS, TUB OPERATOR-C, CNM Detrol LA 06/18 Active Caps ER 4mg 90cap 1 tab by , 24HR s mouth daily Jazmine e, MS, TUB OPERATOR-C, CNM Buspirone HCL 04/11 Active Tablets 7.5mg 180ta 1 tab by Gagkaushik, bs mouth twice Jazmine daily e, MS, TUB OPERATOR-C, CNM Glucosamine Active Tablets 1500 1 PO bid Unknown Double Strength Aspir-Low Active Tablets DR 81mg 1 po daily Unknown Lorazepam Active Tablets 1mg 90tab 1 by mouth Karina, / s every 8 MD Juhi hours as needed for anxiety Calcium 500 +D Active Tablets 500-400mg 180ta one tab by Karina, /0000 -Unit bs mouth twice MD Juhi a day Multivitamins Active Capsules 30cap 1 by mouth Vatra, s every day MD Rick Paroxetine HCL Active Tablets 20mg 90tab 1 by mouth Karina, / s every day MD Juhi Proventil HFA Active Aerosol 108(90Bas 2 puffs Unknown / e) every 6 mcg/Act hours as needed for wheezing/sh ortness of breath Amoxicillin/Clav 02/26 Hx Tablets 875-125mg 14tab take one R05 Gagen, ulanate s tablet Jazmine Potassium - every 12 e, MS, 03/19 hours TUB OPERATOR-C, CNM Prednisone 02/26 Hx Tablets 20mg 10tab 2 tabs (40 R05 Gagen s mg) daily Jazmine - for 5 days e, MS, 03/19 TUB OPERATOR-C, CNM Mucinex 02/26 Hx Tablets ER 600mg 30tab take 1 R05 Gagen 12HR s every 12 Jazmine - hours as e, , 03/19 needed for TUB OPERATOR-C, congestion CNM with a full glass of water Cefuroxime 12/15 Hx Tablets 500mg 14tab 1 tab by J20.9 [place] Axetil s mouth twice , - a day Robbie 12/23 M.D. Prednisone 12/15 Hx Tablets 20mg [...] Tablets ER 600mg 30tab take two by Karina, 12HR s mouth twice MD Juhi a day for congestion/ cough Benzonatate 01/12 Hx Capsules 200mg 90cap 1 by mouth R05 Buddy, s three times Holland E., a day as DO needed cough Citroma 01/08 Hx Solution 1.745GM/3 drink 1 K50.10 0ML bottle at Jermaine, 12pm (noon)the day before the procedure Dulcolax 01/[address] 5mg 4tabs 4 tablets K50.10 taken a 8pm Jermaine, the day before the procedure Chantix Starting 09/16 Hx Tablets 0.5mg X 1tabs use as F17.210 Raghu, 11 & 1 mg directed MD Lonny - X 42 10/09 Golytely 08/05 Hx Solution 236gm 4000m drink half Rec l the bottle , Jermaine, - day before 12/22 the procedure half the bottle the day of the procedure Dulcolax 08/[address] 5mg 4tabs 4 tablets taken a 8pm Jermaine, - the day 10/09 before the procedure Citroma 08/05 Hx Solution 1.745GM/3 296ml drink 1 0ML bottle at Jermaine, - 12pm 10/09 (noon)the day before the procedure and one bottle the day of procedure Macrobid 04/09 Hx Capsules 100mg 14cap 1 PO bid x Z87.440 s 1 week Holland E., DO Benzonatate 04/09 Hx Capsules 200mg 90cap 1 by mouth R05 s three times Holland E., a day [...] Hx Tablets 250mg 6tabs take 2 tabs Karina, on day 1 MD Juhi and take one tab days 2-5 Chantix Starting 03/18 Hx Tablets 0.5mg X 1tabs use as F17.210 Raghu, Month 11 & 1 mg directed MD Lonny X 42 Diflucan 09/10 Hx Tablets 150mg 3tabs Take 1 tab po x 3 days Holland Haines, - DO 10/14 Benzonatate 08/28 Hx Capsules 200mg 90cap 1 by mouth R30.0 s three times Holland Haines, - a day as DO 10/14 needed cough Augmentin 08/28 Hx Tablets 875-125mg 20tab 1 by mouth R30.0 Buddy, s twice a day Holland Haines, x 10 days DO Acidophilus 08/28 Hx Capsules 30cap 1 by mouth R30.0 Buddy, Extra Strength s every day x Holland Haines, - 10 days DO 06/25 Golytely 08/28 Hx Solution 236gm 1jug drink 03/24 K50.10 Rec the jug the Holland Cueto., - day before DO 08/28 procedure a/d, then the other half the morning of the procedure a/d Golytely 08/28 Hx Solution 236gm 1jug drink 03/24 Rec the jug the Holland Haines, - day before DO 10/14 procedure a/d, then the other half the morning of the procedure a/d Levofloxacin 05/15 Hx Tablets 250mg 3tabs 1 by mouth N39.0 daily x 3 Rick, - days before 06/18 Pyridium 05/15 Hx Tablets 200mg 90tab 1 PO tid N39.0 Kenyetta, s prn Katja Cabrera MD 06/18 Macrodantin 04/11 Hx Capsules 100mg 1 by mouth bid x 7 Rick, - days 05/15 Chlorthalidone 04/11 Hx Tablets 25mg 90tab 1 by mouth I10 Kenyetta, s every day Katja Cabrera MD 06/18 Chlorthalidone 20 Hx Tablets 25mg 90tab 1 by mouth I10 Kenyetta, s every day Katja Cabrera MD 05/15 Triamcinolone 03/13 Hx Cream 0.1% 30uni apply Kenyetta, Acetonide ts spaingly Rick, - twice a day 04/11 pr Calcium 600 Hx Tablets 600mg Unknown /0000 - 11/09 Tolterodine Hx Tablets 2mg Unknown Tartrate / - 11/[address] 20mg 90cap 1 by mouth Buddy, /0000 s every day Holland Haines, - DO 07/10 Azathioprine Hx Tablets 50mg 360ta 4 by mouth Sherrie /0000 bs every day , Jermaine - [phone] 12/23 Buspirone HCL Hx Tablets 7.5mg 270ta 1 by mouth Vatra, /0000 bs three times Rick, - a day 04/11 Bupropion HCL ER Hx Tablets ER 150mg 180ta 1 by mouth Buddy, /0000 12HR bs twice a day Holland Haines, - DO 07/01 Micardis Hx Tablets 80mg Unknown / - 11/15 Loperamide HCL Hx Tablets 2mg PO Daily Unknown /0000 After Each - Unformed 04/11 Naproxen Hx Tablets 375mg Unknown / - 11/15 Premarin Hx Cream 0.625mg/G 1unit 1/2 Vatra, /0000 M s applicatorf Rick, - ul 06/25 intravagina lly 1-2 times a week as needed Nasonex Hx Suspension 50mcg/Act 1unit 1 sprays Vatra, /0000 s each Rick, - nostril bid 04/11 prn Pravastatin Hx Tablets 10mg 90tab 1 by mouth Gagen, Sodium /0000 s every at [facility] - bedtime e, MS, 12/23 TUB OPERATOR-C, CNM Spiriva Hx Capsules 18mcg 90cap 1 Vatra, Handihaler /0000 s inhalation Rick, - every day 05/15 Detrol Hx Tablets 2mg 60tab 1 by mouth Vatra, /0000 s twice a day Katja Cabrera MD 05/15 Ventolin HFA Hx Aerosol 108(90Bas 1unit 2 puffs Buddy, /0000 e) s every 4 Holland E., - mcg/Act hours as DO 06/25 Clindamycin HCL Hx Capsules 300mg 1 by mouth Unknown /0000 three times - daily until 05/15 Detrol LA 00 Hx Caps ER 2mg 1 by mouth Unknown /0000 24HR every day - 06/18 Spiriva 00 Hx Capsules 18mcg 1 Unknown Handihaler /0000 inhalation - every day 06/18 Spiriva 00/00 Hx Capsules 18mcg 1 by mouth Unknown Handihaler /0000 every day - 06/25 Immunizations CPT Code Status Date Vaccine Lot # [id number] Given 12/23/2017 Influenza High Dose [id number] U-Pneum Given 01/30/2017 Pneumococcal,Unspecified [id number] 01900 Given 01/30/2017 Influenza High Dose [id number] Given 10/09/2016 Pneumococcal Conjugate Vaccine 13 Valent For [id number] Intramuscular Use Q2038 Given 01/07/2016 Influenza Vaccine (Fluzone) Age 3 And Older [id number] Q2038 Given 04/11/2015 Influenza Vaccine (Fluzone) Age 3 And Older [id number] 61710 Given 11/10/2014 Pneumococcal Conjugate Vaccine 13 Valent For [id number] Intramuscular Use 87017 Given 03/23/2010 Tetnus Injection U-Pneum Given 01/21/2010 Pneumococcal,Unspecified [id number] 56291 Given 02/01/2008 flu vaccination 50931 Given 01/08/2007 flu vaccination 44849 Ordered 01/14/2013 flu vaccination 44747 Given Unknown flu vaccination [id number] Ordered 12/21/2013 flu vaccination 21949 Ordered 12/06/2010 flu vaccination Vital Signs Date Vital Result Comment 03/19/2018 10:45am BP Systolic Sitting Right Arm [...] kg/m2 BSA (Body Surface Area) 1.90 m2 [place] body weight in kilograms 57 kg O2 % BldC Oximetry 97 % ra 01/19/2018 3:52pm BP Systolic Sitting Left Arm 116 mmHg BP Diastolic Sitting Left Arm 74 mmHg Heart Rate 87 /min Respiratory Rate 16 /min Height 65 inches 5'5" Weight 182.50 lb BMI (Body Mass Index) 30.4 kg/m2 BSA (Body Surface Area) 1.90 m2 [place] body weight in kilograms 57 kg O2 Saturation Level with Exercise 96 % 12/23/2017 2:26pm BP Systolic Sitting Right Arm 120 mmHg BP Diastolic Sitting Right Arm 74 mmHg Body Temperature 96.0 F Heart Rate 87 /min Respiratory Rate 16 /min Height 65 inches 5'5" Weight 179.00 lb BMI (Body Mass Index) 29.8 kg/m2 BSA (Body Surface Area) 1.89 m2 [place] body weight in kilograms 57 kg O2 [...] kg/m2 BSA (Body Surface Area) 1.94 m2 [place] body weight in kilograms 57 kg O2 % BldC Oximetry 96 % Ora 05/04/2017 9:32am BP Systolic Sitting Right Arm 141 mmHg Ofe 118/64 BP Diastolic Sitting Right Arm 74 mmHg Ofe 118/64 Heart Rate 75 /min Respiratory Rate 16 /min Height 65 inches 5'5" Weight 188.00 lb BMI (Body Mass Index) 31.3 kg/m2 BSA (Body Surface Area) 1.93 m2 [place] body weight in kilograms 57 kg 04/02/2017 3:21pm BP Systolic 121 mmHg BP Diastolic 67 mmHg Body Temperature 98.6 F Heart Rate 105 /min Respiratory Rate 16 /min Height 65 inches 5'5" [place] body weight in kilograms 57 kg O2 % BldC Oximetry 94 % 02/19/2017 2:21pm BP Systolic Sitting Left Arm 124 mmHg BP Diastolic Sitting Left Arm 80 mmHg Heart Rate 97 /min Respiratory Rate 16 /min Height 65 inches 5'5" Weight 188.00 lb BMI (Body Mass Index) 31.3 kg/m2 BSA (Body Surface Area) 1.93 m2 [place] body weight in kilograms 57 kg 01/30/2017 11:17am BP Systolic Sitting Left Arm 122 mmHg BP Diastolic Sitting Left Arm 67 mmHg Heart Rate 76 /min Height 65 inches 5'5" Weight 191.00 lb BMI (Body Mass Index) 31.8 kg/m2 BSA (Body Surface Area) 1.94 m2 [place] body weight in kilograms 57 kg 01/12/2017 1:00pm BP Systolic 151 mmHg BP Diastolic 76 mmHg Body Temperature 97.0 F Heart Rate 83 /min Height 65 inches 5'5" Weight 190.25 lb BMI (Body Mass Index) 31.7 kg/m2 BSA (Body Surface Area) 1.94 m2 [place] body weight in kilograms 57 kg O2 % BldC Oximetry 94 % 01/08/2017 10:54am BP Systolic Sitting Left Arm 130 mmHg BP Diastolic Sitting Left Arm 80 mmHg Heart Rate 94 /min Respiratory Rate 16 /min Height 65 inches 5'5" Weight 191.00 lb BMI (Body Mass Index) 31.8 kg/m2 BSA (Body Surface Area) 1.94 m2 [place] body weight in kilograms 57 kg 12/22/2016 11:22am BP Systolic 122 mmHg BP Diastolic 76 mmHg Heart Rate 91 /min Respiratory Rate 16 /min Height 65 inches 5'5" Weight 191.12 lb BMI (Body Mass Index) 31.8 kg/m2 BSA (Body Surface Area) 1.94 m2 [place] body weight in kilograms 57 kg O2 % BldC Oximetry 93 % 10/09/2016 1:36pm BP Systolic Sitting Left Arm 112 mmHg BP Diastolic Sitting Left Arm 67 mmHg Heart Rate 74 /min Respiratory Rate 12 /min Height 65 inches 5'5" Weight 196.38 lb BMI (Body Mass Index) 32.7 kg/m2 BSA (Body Surface Area) 1.96 m2 [place] body weight in kilograms 57 kg O2 % BldC Oximetry 91 % 09/16/2016 1:47pm BP Systolic Sitting Right Arm 122 mmHg BP Diastolic Sitting Right Arm 64 mmHg Heart Rate 84 /min Respiratory Rate 18 /min Height 65 inches 5'5" Weight 200.00 lb BMI (Body Mass Index) 33.3 kg/m2 BSA (Body Surface Area) 1.98 m2 [place] body weight in kilograms 57 kg O2 % BldC Oximetry 95 % Room air 08/05/2016 10:54am BP Systolic Sitting Left Arm 126 mmHg BP Diastolic Sitting Left Arm 76 mmHg Heart Rate 80 /min Respiratory Rate 16 /min Height 65 inches 5'5" Weight 197.00 lb BMI (Body Mass Index) 32.8 kg/m2 BSA (Body Surface Area) 1.97 m2 [place] body weight in kilograms 57 kg 07/10/2016 [...] kg/m2 BSA (Body Surface Area) 1.97 m2 [place] body weight in kilograms 57 kg 06/02/2016 [...] kg/m2 BSA (Body Surface Area) 1.97 m2 [place] body weight in kilograms 59 kg O2 [...] Date Facility Test Result H/L Range Note Escherichia Coli 03/19/2018 PSYCHIATRIC Nitrofurantoin <=16 [address] [place] [address] [phone] Trimethoprim/Sulfamethoxazole <=20 S Ampicillin >=32 R Cefazolin <=4 S Ampicillin/Sulbactam >=32 R Ciprofloxacin <=0.25 S Piperacillin/Tazobactam <=4 S Ceftazidime <=1 S Ceftriaxone <=1 S Cefepime <=1 S Levofloxacin <=0.12 S Imipenem <=0.25 S Gentamicin <=1 S Tobramycin <=1 S Urine Culture 03/19/2018 CRM Urine Culture ESCHERICHIA COLI Abnormal [address] [place] [address] [phone] Quantity > 100,000 CFU/mL 2 Urine Culture URETHRAL CRISTY Quantity 10,000 - 50,000 <SEE NOTE> 3 Urine Dipstick 03/19/2018 [facility] Inhouse Ua Color yellow Yellow Ua Clarity clear Clear Ua Leuko 2+ High Negative Ua Nitrite negative Negative Ua Urobilinogen negative Low 0.2 - 1.0 E.U./dL Ua Protein negative Negative Ua PH 6.0 Low 6.5-7.5 Ua Blood trace Negative Ua Specific Donalds 1.010 1.010-1.030 Ua Ketones negative Negative Ua Bilirubin negative Negative Ua Glucose negative Negative Culture If 03/19/2018 PSYCHIATRIC Culture If CULTURE TO 4 Indicated Comment [address] Indicated Comment FOLLO <[place] [address] NOTE> [phone] Source: URINE, CLEAN CAT <SEE NOTE> 5 Ua RFX Micro & Culture 03/19/2018 PSYCHIATRIC Urine Color YELLOW Yellow II [address] [place] [address] [phone] Urine Clarity CLEAR Clear Urine Glucose - Dipstick NEGATIVE mg/dL Negative Urine Bilirubin - Dipstick NEGATIVE Negative Urine Ketone NEGATIVE mg/dL Negative Urine Specific Donalds <=1.005 Low 1.010-1.030 Urine Blood TRACE Negative [...] Seen Source: URINE, CLEAN CAT <SEE NOTE> 6 Comprehensive Metabolic 03/08/2018 PSYCHIATRIC Glucose 100 mg/dL N 74-106 7 Panel [address] [place] [address] [phone] BUN 11 mg/dL N 7-18 Creatinine 0.8 [...] U/L N 15-37 SGPT/Alt 28 U/L N -78 Alkaline Phosphatase 109 U/L N 45-117 LDL Cholesterol Profile 03/08/2018 PSYCHIATRIC Cholesterol 173 mg/dL <200 9 [address], [place] [id number] [phone] Triglycerides 125 mg/dL <150 10 HDL Cholesterol 38 mg/dL Low >40 11 LDL-Cholesterol 110 mg/dL < 100 12 Laboratory test finding 01/19/2018 PSYCHIATRIC Lipase 157 U/L N 56-289 13 [address], [place] [id number] [phone] Amylase 24 U/L Low 25-115 Comprehensive 12/15/2017 PSYCHIATRIC Glucose 110 mg/dL High 74-106 14 Metabolic Panel [address], [place] [id number] [phone] BUN 15 mg/dL N 7-18 Creatinine 0.8 [...] U/L N 15-37 SGPT/Alt 46 U/L N -78 Alkaline Phosphatase 99 U/L N 45-117 LDL Cholesterol Profile 12/15/2017 PSYCHIATRIC Cholesterol 185 mg/dL <[address] [place] [address] [phone] Triglycerides 147 mg/dL <150 17 HDL Cholesterol 35 mg/dL Low >40 18 LDL-Cholesterol 121 mg/dL < 100 19 Glycohemoglobin A1c 12/15/2017 PSYCHIATRIC Glycohemoglobin 5.5 % N 4.2-6.[address] (A1c) [place] [address] [phone] eAG 111 mg/dL CBS W/Automated Diff 12/15/2017 PSYCHIATRIC White Blood 7.7 K/uL N 3.1-10.[address] [place] [address] [phone] Red Blood Count 4.39 M/uL N 3.90-5.40 [...] 40.4-72.8 Lymph % 12.4 % Low 20.0-42.0 [place] % 11.5 % N 4.3-13.2 Eo% 2.6 % N 0.0-6.6 Bas% 0.4 % N 0.0-1.1 Neut# 5.64 K/uL N 1.8-7.0 Lymph # 0.96 K/uL Low 1.0-4.0 [place] # 0.89 K/uL N 0.3-0.9 Eos # 0.20 K/uL N 0.0-0.5 Baso # 0.03 K/uL N 0.0-0.1 CBS W/Automated 04/28/2017 PSYCHIATRIC White Blood 8.4 K/uL N 3.1-10.7 [address] [place] [address] [phone] Red Blood Count 4.33 M/uL N 3.90-5.40 [...] 40.4-72.8 Lymph % 11.3 % Low 20.0-42.0 [place] % 10.3 % N 4.3-13.2 Eo% 3.7 % N 0.0-6.6 Bas% 0.2 % N 0.0-1.1 Neut# 6.27 K/uL N 1.8-7.0 Lymph # 0.95 K/uL Low 1.0-4.0 [place] # 0.87 K/uL N 0.3-0.9 Eos # 0.31 K/uL N 0.0-0.5 Baso # 0.02 K/uL N 0.0-0.1 LDL Cholesterol Profile 04/28/2017 PSYCHIATRIC Cholesterol 171 mg/dL <[address] [place] [address] [phone] Triglycerides 190 mg/dL High <150 23 HDL Cholesterol 37 mg/dL Low >40 24 LDL-Cholesterol 96 mg/dL < 100 25 Laboratory test finding 04/28/2017 PSYCHIATRIC Lipase 248 U/L N 56-[address] [place] [address] [phone] Amylase 27 U/L N 25-115 Glycohemoglobin A1c 04/28/2017 PSYCHIATRIC Glycohemoglobin 6.0 % N 4.2-6.[address] (A1c) [place] [address] [phone] eAG 126 mg/dL Comprehensive Metabolic 04/28/2017 PSYCHIATRIC Glucose 119 mg/dL High 74-[address] [place] [address] [phone] BUN 13 mg/dL N 7-18 Creatinine 0.8 [...] 12-78 Alkaline Phosphatase 93 U/L N 45-117 CBS W/Automated 01/29/2017 PSYCHIATRIC White Blood 8.7 K/uL N 3.1-10.7 [address] [place] [address] [phone] Red Blood Count 4.29 M/uL N 3.90-5.40 [...] 40.4-72.8 Lymph % 14.1 % Low 20.0-42.0 [place] % 8.8 % N 4.3-13.2 Eo% 3.9 % N 0.0-6.6 Bas% 0.3 % N 0.0-1.1 Neut# 6.34 K/uL N 1.8-7.0 Lymph # 1.23 K/uL N 1.0-4.0 [place] # 0.77 K/uL N 0.3-0.9 Eos # 0.34 K/uL N 0.0-0.5 Baso # 0.03 K/uL N 0.0-0.1 Comprehensive Metabolic 01/29/2017 PSYCHIATRIC Glucose 107 mg/dL High 74-106 Panel [address] [place] [address] [phone] BUN 9 mg/dL N 7-18 Creatinine 0.8 mg/dL N 0.6-1.3 Glom Filtration Rate, Estimate >60 mL/min >60 If >60 mL/min >60 29 BUN/Creat 11.2 ratio Sodium 139 mmol/L N [...] 12-78 Alkaline Phosphatase 94 U/L N 45-117 LDL Cholesterol Profile 01/29/2017 PSYCHIATRIC Cholesterol 158 mg/dL <200 30 [address] [place] [address] [phone] Triglycerides 225 mg/dL High <150 31 HDL Cholesterol 33 mg/dL Low >40 32 LDL-Cholesterol 80 mg/dL < 100 33 Laboratory test 01/29/2017 PSYCHIATRIC Vitamin 40.3 30.0-100.0 [address] D,25-Hydroxy ng/[place] [address] [phone] Comprehensive 10/06/2016 PSYCHIATRIC Glucose 134 High 74-106 35 Metabolic Panel [address] mg/[place] [address] [phone] BUN 11 mg/dL N 7-18 Creatinine 0.7 [...] U/L N 45-117 CBS W/Automated Diff 10/06/2016 PSYCHIATRIC White Blood 9.4 K/uL N 3.1-10.[address] [place] [address] [phone] Red Blood Count 4.22 M/uL N 3.90-5.40 [...] 40.4-72.8 Lymph % 9.8 % Low 20.0-42.0 [place] % 6.8 % N 4.3-13.2 Eo% 3.0 % N 0.0-6.6 Bas% 0.4 % N 0.0-1.1 Neut# 7.51 K/uL High 1.8-7.0 Lymph # 0.92 K/uL Low 1.0-4.0 [place] # 0.64 K/uL N 0.3-0.9 Eos # 0.28 K/uL N 0.0-0.5 Baso # 0.04 K/uL N 0.0-0.1 Slide Review 10/06/2016 PSYCHIATRIC Slide Review . [address] [place] [address] [phone] Laboratory test 08/05/2016 PSYCHIATRIC Sedimentation Rate 60 High 0-30 [address] mm/[place] [address] [phone] C-Reactive Protein,Quant 15.9 mg/L High <3.0 Celiac Disease 08/05/2016 PSYCHIATRIC Immunoglobulin A 494 mg/dL High 87-[address] [place] [address] [phone] Antigliadin Abs, IgG 3 units 0-19 39 Antigliadin Abs, IgA 6 units 0-19 40 Endomysial IgA Antibody Negative Negative t-Transglutaminase IgA <2 U/mL 0-3 41 t-Transglutaminase IgG <2 U/mL 0-5 42 Laboratory test finding 08/05/2016 PSYCHIATRIC Amylase 23 U/L Low 25-[address] [place] [address] [phone] Lipase 175 U/L N 73-393 Inflammatory 08/05/2016 PSYCHIATRIC Atypical <1:20 Neg:<1:20 43 Bowel Disease [address] [place] [place] [address] [phone] Saccharomyces cerevisiae, IgG < 20.0 units 0.0-24.9 44 Saccharomyces cerevisiae, IgA < 20.0 units 0.0-24.9 45 CBS W/Automated 06/30/2016 PSYCHIATRIC White Blood 9.0 K/uL N 3.1-10.7 [address] [place] [address] [phone] Red Blood Count 4.47 M/uL N 3.90-5.40 [...] 40.4-72.8 Lymph % 10.3 % Low 20.0-42.0 [place] % 9.5 % N 4.3-13.2 Eo% 2.2 % N 0.0-6.6 Bas% 0.3 % N 0.0-1.1 Neut# 7.00 K/uL N 1.8-7.0 Lymph # 0.93 K/uL Low 1.0-4.0 [place] # 0.86 K/uL N 0.3-0.9 Eos # 0.20 K/uL N 0.0-0.5 Baso # 0.03 K/uL N 0.0-0.1 Comprehensive Metabolic 06/30/2016 PSYCHIATRIC Glucose 111 mg/dL High 74-[address] [place] [address] [phone] BUN 10 mg/dL N 7-18 Creatinine 0.9 [...] 105 U/L N 45-117 Laboratory test 06/30/2016 PSYCHIATRIC Magnesium 2.3 mg/dL N 1.8-2.[address] [place] [address] [phone] CBS W/Automated 04/16/2016 PSYCHIATRIC White Blood 11.6 K/uL High 3.1-10.7 [address] [place] [address] [phone] Red Blood Count 4.45 M/uL N 3.90-5.40 [...] Mean Platelet Volume 10.8 fL N 8.9-12.4 49 Neut# 8.94 K/uL High 1.8-7.0 Lymph # 0.96 K/uL Low 1.0-4.0 [place] # 0.99 K/uL High 0.3-0.9 Eos # 0.66 K/uL High 0.0-0.5 Baso # 0.05 K/uL N 0.0-0.1 Comprehensive Metabolic 04/16/2016 PSYCHIATRIC Glucose 112 mg/dL High 74-106 Panel [address] [place] [address] [phone] BUN 12 mg/dL N 7-18 Creatinine 0.7 mg/dL N 0.6-1.3 Glom Filtration Rate, Estimate >60 mL/min N >60 If >60 mL/min N >60 50 BUN/Creat 17.1 ratio N Sodium 140 mmol/L [...] 103 U/L N 45-117 Slide Review 04/16/2016 PSYCHIATRIC Slide Review DIFF ORDERED N [address] [place] [address] [phone] Differential-WBC 04/16/2016 PSYCHIATRIC Total Cells 100 #CELLS N Confirm [address] [place] [address] [phone] Band% 7 % N 0-8 Neutrophils% 78 % High 33-73 Lymph% 3 % Low 20-42 Monocyte% 7 % N 0-10 Eosinophil% 4 % N 0-5 Basophil% 1 % N 0-2 Platelet Estimate NORMAL N Anisocytosis 0-1+ N Macrocytosis 0-1+ N CBS W/Automated 04/09/2016 PSYCHIATRIC White Blood 15.7 K/uL High 3.1-10.7 [address] [place] [address] [phone] Red Blood Count 4.64 M/uL N 3.90-5.40 [...] 40.4-72.8 Lymph % 6.3 % Low 20.0-42.0 [place] % 7.3 % N 4.3-13.2 Eo% 0.1 % N 0.0-6.6 Bas% 0.1 % N 0.0-1.1 Neut# 13.51 K/uL High 1.8-7.0 Lymph # 0.98 K/uL Low 1.0-4.0 [place] # 1.14 K/uL High 0.3-0.9 Eos # 0.01 K/uL N 0.0-0.5 Baso # 0.01 K/uL N 0.0-0.1 Comprehensive Metabolic 04/09/2016 CRM Glucose 111 mg/dL High 74-106 Panel [address] [place], [place] [id number] [phone] BUN 11 mg/dL N 7-18 Creatinine 0.7 [...] 88 U/L N 45-117 Slide Review 04/09/2016 PSYCHIATRIC Slide Review . N [address] [place] [address] [phone] CBC W/Automated 01/08/2016 PSYCHIATRIC White Blood 9.8 K/uL N 3.1-10.7 [address] [place] [address] [phone] Red Blood Count 4.40 M/uL N 3.90-5.40 [...] 40.4-72.8 Lymph % 10.9 % Low 17.0-46.1 [place] % 7.7 % N 4.3-13.2 Eo% 2.8 % N 0.0-6.6 Bas% 0.4 % N 0.0-1.1 Neut# 7.67 K/uL High 1.8-7.0 Lymph # 1.07 K/uL Low 1.8-7.0 [place] # 0.75 K/uL N 0.3-0.9 Eos # 0.27 K/uL N 0.0-0.5 Baso # 0.04 K/uL N 0.0-0.1 Comprehensive Metabolic 01/08/2016 PSYCHIATRIC Glucose 113 mg/dL High 74-106 Panel [address] [place] [address] [phone] BUN 10 mg/dL N 7-18 Creatinine 0.8 [...] 95 U/L N 45-117 Laboratory test 01/08/2016 PSYCHIATRIC Ferritin 45 ng/mL N 8-252 finding [address] [place] [address] [phone] LDL Cholesterol 01/08/2016 PSYCHIATRIC Cholesterol 177 mg/dL N <200 57 Profile [address] [place], [place] [id number] [phone] Triglycerides 143 mg/dL N <150 58 HDL Cholesterol 34 mg/dL Low >40 59 LDL-Cholesterol 114 mg/dL N < 100 60 Laboratory test 01/08/2016 PSYCHIATRIC Vitamin 41.9 N 30.0-100.0 [address] D,25-Hydroxy ng/[place] [address] [phone] Slide Review 01/08/2016 PSYCHIATRIC Slide Review . N 62 [address] [place] [address] [phone] Laboratory test 10/01/2015 PSYCHIATRIC Gastric See Note [address] Biopsy/Polyp [place], [place] [id number] [phone] Comprehensive 07/03/2015 PSYCHIATRIC Glucose 95 mg/dL 74-106 Metabolic Panel [address] [place] [address] [phone] BUN 9 mg/dL 7-18 Creatinine 0.8 mg/dL 0.6-1.3 Glom Filtration Rate, Estimate >60 mL/min >60 If >60 mL/min >60 64 BUN/Creat 11.2 ratio Sodium 136 mmol/L 136-145 [...] U/L 12-78 Alkaline Phosphatase 92 U/L 45-117 CBC W/Automated 07/03/2015 PSYCHIATRIC White Blood 10.0 K/uL 3.1-10.[address] Count [place], [place] [id number] [phone] Red Blood Count 4.49 M/uL 3.90-5.40 Hemoglobin [...] 40.4-72.8 Lymph % 14.6 % Low 17.0-46.1 [place] % 6.7 % 4.3-13.2 Eo% 2.7 % 0.0-6.6 Bas% 0.3 % 0.0-1.1 Neut# 7.60 K/uL High 1.8-7.0 Lymph # 1.47 K/uL Low 1.8-7.0 [place] # 0.67 K/uL 0.3-0.9 Eos # 0.27 K/uL 0.0-0.5 Baso # 0.03 K/uL 0.0-0.1 Laboratory test 07/03/2015 PSYCHIATRIC Slide Review . 65 finding [address] [place] [place] [address] [phone] Comprehensive 06/18/2015 PSYCHIATRIC Glucose 102 mg/dL 74-106 Metabolic Panel [address] [place] [address] [phone] BUN 8 mg/dL 7-18 Creatinine 0.6 mg/dL 0.6-1.3 Glom Filtration Rate, Estimate >60 mL/min >60 If >60 mL/min >60 66 BUN/Creat 13.3 ratio Sodium 132 mmol/L Low [...] U/L 12-78 Alkaline Phosphatase 82 U/L 45-117 CBC W/Automated 06/18/2015 PSYCHIATRIC White Blood 10.1 K/uL 3.1-10.7 Diff [address] [place] [address] [phone] Red Blood Count 4.54 M/uL 3.90-5.40 Hemoglobin [...] 40.4-72.8 Lymph % 13.2 % Low 17.0-46.1 [place] % 7.2 % 4.3-13.2 Eo% 1.6 % 0.0-6.6 Bas% 0.4 % 0.0-1.1 Neut# 7.85 K/uL High 1.8-7.0 Lymph # 1.33 K/uL Low 1.8-7.0 [place] # 0.73 K/uL 0.3-0.9 Eos # 0.16 K/uL 0.0-0.5 Baso # 0.04 K/uL 0.0-0.1 Laboratory test 06/18/2015 PSYCHIATRIC Slide Review . [address] [place] [address] [phone] Laboratory test 03/15/2015 N2N/CCD Import Urine Moderate High Negative finding Bilirubin Urine Culture Reflexed Culture To Follow Urine Glucose (Ua) 100 High Negative Urine Ketones 15 High Negative Urine Leukocyte Esterase Moderate High Negative Urine Nitrite Positive High Negative Urine Urobilinogen 1.0 0.2-1.0 Laboratory test 03/15/2015 PSYCHIATRIC Culture If See Note [address] [place] [address] [phone] Ua RFX Micro + Culture II See Note 69 Urine Culture See Note 70 Urinalysis With Microscopic 03/15/2015 PSYCHIATRIC Urine Color RED Yellow [address] [place] [address] [phone] Urine Clarity TURBID Clear Urine Glucose - Dipstick 100 mg/dL High Negative Urine Bilirubin - Dipstick MODERATE High Negative Urine Ketone 15 mg/dL High Negative Urine Specific Donalds 1.015 1.010-1.030 Urine Blood LARGE High Negative Urine PH 6.5 6.5-7.5 Urine Protein - Dipstick >=300 mg/dL High Negative Urine Urobilinogen - Dipstick 1.0 E.U./dL 0.2-1.0 Urine Nitrite - Dipstick POSITIVE High Negative Urine Leuk Esterase MODERATE High Negative Urine RBC TNTC rbc/hpf High 0-2 Urine WBC 2-5 wbc/hpf 0-7 Urine Epithelial Cells VERY FEW NONESEEN/lpf Urine Bacteria FEW NONESEEN Laboratory test 03/12/2015 N2N/CCD Import Basophils # [...] 49.7 High 3-47 Sodium Level 138 136-145 CBC W/Automated 03/12/2015 CRM White Blood 10.0 K/uL 3.1-10.[address] Count [place], [place] [id number] [phone] Red Blood Count 4.90 M/uL 3.90-5.40 Hemoglobin [...] 40.4-72.8 Lymph % 13.1 % Low 17.0-46.1 [place] % 7.5 % 4.3-13.2 Eo% 2.8 % 0.0-6.6 Bas% 0.3 % 0.0-1.1 Neut# 7.61 K/uL High 1.0-7.0 Lymph # 1.31 K/uL Low 1.8-7.0 [place] # 0.75 K/uL 0.3-0.9 Eos # 0.28 K/uL 0.0-0.5 Baso # 0.03 K/uL 0.0-0.1 Comprehensive Metabolic 03/12/2015 PSYCHIATRIC Glucose 114 mg/dL High 74-106 Panel [address] [place] [address] [phone] BUN 11 mg/dL 7-18 Creatinine 0.7 mg/dL [...] U/L 12-78 Alkaline Phosphatase 101 U/L 45-117 1 ESCHERICHIA COLI 2 > 100,000 CFU/mL 3 10,000 - 50,000 CFU/mL 4 CULTURE TO FOLLOW 5 URINE, CLEAN CATCH 6 URINE, CLEAN CATCH 7 E78.5 8 Note: Persistent reduction for [...] for more aggressive treatment of glycemia. The [place] [employer] recommends that a primary goal [...] for more aggressive treatment of glycemia. The [place] [employer] recommends that a primary goal [...] be found at www.kdoqi.org. 28 K50.10,E55.9,E78.5 29 Note: Persistent reduction for 3 months or more in an eGFR <60 mL/min/1.73 m2 defines CKD. Patients with eGFR values >/=60 mL/min/1.73 m2 may also have CKD if evidence of persistent proteinuria is present. The original MDRD equation for estimated GFR is not valid for patients less than 18 years of age. Additional information may be found at www.kdoqi.org. 30 Reference Guidelines*: Desirable: ........... < 200 mg/dL Borderline High: ..... 200-239 mg/dL High: ................ >=240 mg/dL * The National Cholesterol Education Program (NCEP) 31 Reference Guidelines*: Normal: ............. < 150 mg/dL Borderline High: .... 150-199 mg/dL High: ............... 200-499 mg/dL Very High: .......... > 500 mg/dL * Source: National Cholesterol Education Program (NCEP) 32 Reference Guidelines*: Low HDL: ..... < 40 mg/dL Normal: ..... 40-60 mg/dL Desirable: ... > 60 mg/dL *The National Cholesterol Education Program(NCEP) 33 Reference Guidelines*: Optimal:........... <100 mg/dL Near Optimal....... 100-129 mg/dL Borderline High.... 130-159 mg/dL High............... 160-189 mg/dL Very High.......... >=190 mg/dL * Source: National Cholesterol Education Program (NCEP) 34 Vitamin D deficiency has been defined by the [place] of [employer] and an Endocrine Society practice guideline as a level of serum 25-OH vitamin D less than 20 ng/mL (1,2). The Endocrine Society went on to further define vitamin D insufficiency as a level between 21 and 29 ng/mL (2). 1. IOM ([place] [employer]). 2010. Dietary reference intakes for calcium and D. [place]: The National Academies Press. 2. Silas MF, Tera NC, Reymundo VELAZQUEZ, et al. Evaluation, treatment, and prevention of vitamin D deficiency: an Endocrine Society clinical practice guideline. JCEM. 2010; 96(7):1911-30. Performed at: RN - [facility] [address] [id number] Slot Machine Floor Person: Elvia Florence MD, Phone: [phone] 35 k50.10 36 Note: Persistent reduction for 3 months [...] had antibody for both. Performed at: - [facility] [id number] Sl[employer] Floor Person: Elvia Florence MD, Phone: [phone] Performed at: - [facility] [address] [id number] Slot Machine Floor Person: Juan David Us MD, Phone: [phone] 46 K50.10 K21.9 Z87.988 47 Note: Persistent reduction for 3 months [...] at www.kdoqi.org. 48 I10 K50.10 K21.9 49 04/16/16 1301: NEUT% previously reported as: 77.1 H % Amended result called to: [] - 04/16/16 at 1301 04/16/16 1301: LYMPH % previously reported as: 8.3 L % Amended result called to: [] - 04/16/16 at 1301 04/16/16 1301: MONO % previously reported as: 8.5 % Amended result called to: [] - 04/16/16 at 1301 04/16/16 1301: EO% previously reported as: 5.7 % Amended result called to: [] - 04/16/16 at 1301 04/16/16 1301: BAS% previously reported as: 0.4 % Amended result called to: [] - 04/16/16 at 1301 50 Note: Persistent reduction for 3 months or more in an eGFR <60 mL/min/1.73 m2 defines CKD. Patients with eGFR values >/=60 mL/min/1.73 m2 may also have CKD if evidence of persistent proteinuria is present. The original MDRD equation for estimated GFR is not valid for patients less than 18 years of age. Additional information may be found at www.kdoqi.org. 51 I10 K50.10 52 Note: Persistent reduction [...] D deficiency has been defined by the [place] of [employer] and an Endocrine Society practice guideline as a level of serum 25-OH vitamin D less than 20 ng/mL (1,2). The Endocrine Society went on to further define vitamin D insufficiency as a level between 21 and 29 ng/mL (2). 1. IOM ([place] [employer]). 2010. Dietary reference intakes for calcium and D. [place]: The National Academies Press. 2. Silas MF, Tera NC, Reymundo VELAZQUEZ, et al. Evaluation, treatment, and prevention of vitamin D deficiency: an Endocrine Society clinical practice guideline. JCEM. 2010; 96(7):1911-30. Performed at: RN - [facility] [address] [id number] Slot Machine Floor Person: Elvia Florence MD, Phone: [phone] Instrument flagged sample for slide review. [...] I Signed Electronically signed Zaki BORJAS MD 1610 64 Note: Persistent reduction for 3 months or more in an eGFR <60 mL/min/1.73 m2 defines CKD. Patients with eGFR values >/=60 mL/min/1.73 m2 may also have CKD if evidence of persistent proteinuria is present. The original MDRD equation for estimated GFR is not valid for patients less than 18 years of age. Additional information may be found at www.kdoqi.org. 65 Instrument flagged sample for slide review. Less than 10% Bands seen, no other immature WBC's seen. RBC morphology essentially normal. Platelet estimate=NORMAL 66 Note: Persistent reduction for 3 months or more in an eGFR <60 mL/min/1.73 m2 defines CKD. Patients with eGFR values >/=60 mL/min/1.73 m2 may also have CKD if evidence of persistent proteinuria is present. The original MDRD equation for estimated GFR is not valid for patients less than 18 years of age. Additional information may be found at www.kdoqi.org. 67 Instrument flagged sample for slide review. Less than 10% Bands seen, no other immature WBC's seen. RBC morphology essentially normal. Platelet estimate=NORMAL 68 CULTURE TO FOLLOW 69 03/15/15 [email or web address] Deleted by [facility] [place] [facility] [place] Organism 1 ! ESCHERICHIA COLI Quantity [...] www.kdoqi.org. Procedures Date Code Description Status 02/26/2018 43725 Remove Impact Cerumen Irrigati Completed 03/05/2017 [id number] Mammogram Completed 01/28/2017 [id number] Colonoscopy Completed 01/28/2017 73024 Colonoscopy With Biopsy Completed 01/12/2017 18078 Pressurized/Non-Pressurized Inhalation Treatment,Acute Completed Obstructio 12/03/2016 [id number] Colonoscopy Completed 12/03/2016 33514 Colonoscopy With Biopsy Completed 07/10/2016 02806 Remove Impact Cerumen Irrigati Completed 06/25/2016 00102 Radiology, Shoulder: Two Views (Sso) Completed 06/25/2016 60478 Radiology, Shoulder: Two Views (Sso) Completed 04/04/2016 58787 Pressurized/Non-Pressurized Inhalation Treatment,Acute Completed Obstructio 03/26/2016 69269 Bronchospasm Provocation Evaluation Multi Spirometric Completed Determinati 03/26/2016 89152 Spirometry Completed 10/01/2015 48059 Colonoscopy With Polypectomy Completed 10/01/2015 27325 Colonoscopy With Biopsy Forceps Completed 10/01/2015 84352 EGD With Biopsy Completed 09/21/2015 [id number] Colonoscopy Completed 09/14/2015 37787 Remove Impacted Cerumen Completed 06/22/2015 492463093 Bone Mineral Density Test Completed 06/19/2015 81906 Remove Impacted Cerumen Completed 10/02/2014 [id number] Colonoscopy Completed 10/02/2014 89510 Conscious Sedation For Colonsocopy Completed 05/05/2014 17947711 Mammogram Completed 04/15/2013 [id number] Mammogram Completed 11/01/2012 84338 xray spine cervical min 4 views Completed 11/01/2012 20095 Radiology, Shoulder: Two Views (Sso) Completed 12/31/200706609 Asp./Injection major joint Completed 11/29/2007 18722 Radiology, Shoulder: Two Views (Sso) Completed 11/16/2007 79362 Remove Impacted Cerumen Completed 10/27/2007 70210 Remove Impacted Cerumen Completed 09/15/2007 31416 Remove Impacted Cerumen Completed 08/10/2007 53341 Remove Impacted Cerumen Completed 07/26/2007 01853 Colonoscopy With Polypectomy Completed 01/08/2007 09509 Remove Impacted Cerumen Completed Encounters Type Date Location Provider Dx Diagnosis Office Visit 03/19/2018 Primary Care Tita J30.9 Allergic rhinitis, 10:30a Office Jamila, MS, unspecified TUB OPERATOR-C, CNM I10 Essential (primary) hypertension E78.5 Hyperlipidemia, unspecified R30.0 Dysuria R05 Cough Z71.6 Tobacco abuse counseling Z71.9 Counseling, unspecified Office Visit 02/26/2018 10:00a Primary Care Jamila Rivers J06.9 Acute upper Office MS, TUB OPERATOR-C, CNM respiratory infection, unspecified R05 Cough J44.1 Chronic obstructive pulmonary disease w (acute) exacerbation M79.671 Pain in right foot Z71.6 Tobacco abuse counseling H61.23 Impacted cerumen, bilateral Office Visit 01/19/2018 3:30p GI Jermaine Balderas MD K50.10 Crohn's disease of large intestine without complications Z72.0 Tobacco use Office Visit 12/23/2017 2:40p Primary Care Juhi Collins, E78.5 Hyperlipidemia, Office unspecified R73.9 Hyperglycemia, unspecified Z23 Encounter for [...] disease, unspecified Office Visit 02/19/2017 2:15p Jermaine Molina, K50.10 Crohn's disease of MD large intestine [...] Office Visit 12/22/2016 11:20a Primary Care Arthur Toribio, J44.9 Chronic Office M.D. obstructive pulmonary disease, unspecified J20.9 Acute bronchitis, [...] Tobacco abuse counseling Office Visit 08/05/2016 10:45a GI Jermaine Balderas MD K50.10 Crohn's disease of large intestine [...] Care Juhi Collins, J20.9 Acute bronchitis, Office unspecified F17.210 Nicotine dependence, cigarettes, uncomplicated Office [...] Care Juhi Collins, H61.23 Impacted cerumen, Office bilateral Office Visit 08/29/2015 10:00a Primary Care Lila Mishra J01.90 Acute sinusitis, Office REINA Sena unspecified I10 Essential (primary) hypertension K50.10 Crohn's disease of large intestine without complications K21.9 Gastro-esophageal reflux disease without esophagitis R13.10 Dysphagia, unspecified Office Visit 08/06/2015 1:30p Primary Care Lila Mishra I10 Essential ( primary) Office REINA Sena hypertension Z87.440 Personal history of urinary (tract) infections K50.10 Crohn's disease of large intestine without complications M15.0 Primary generalized (osteo)arthritis E78.5 Hyperlipidemia, unspecified E87.6 Hypokalemia Z71.6 Tobacco abuse counseling F17.200 Nicotine dependence, unspecified, uncomplicated Office Visit 06/19/2015 2:30p Primary Care Lila Mishra I10 Essential ( primary) Office REINA Sena hypertension Z87.440 Personal history of urinary (tract) infections K50.10 Crohn's disease of large intestine without complications M15.0 Primary generalized (osteo)arthritis E78.5 Hyperlipidemia, unspecified H61.23 Impacted cerumen, bilateral E87.6 Hypokalemia Office Visit 05/15/2015 3:30p Lila Prabhakar, N39.0 Urinary tract PA-C infection, site not [...] DO Office Visit 01/05/2008 10:00a Drew Hsu, Chayito Naylor.O. H., DO Office Visit 12/31/2007 1:45p Rick Velasquez MD Office Visit 11/29/2007 11:00a Drew Hsu, Chayito Naylor.O. H., DO Office Visit 11/16/2007 1:00p Rick Velasquez MD Office Visit 10/27/2007 10:45a Rick Velasquez MD Office Visit 09/15/2007 1:00p Rick Velasquez MD Office Visit 08/10/2007 10:15a Rcik Velasquez MD 787.91 Diarrhea Office Visit 07/13/2007 10:15a Rick Velasquez MD Office Visit 05/20/2007 9:20a Rick Velasquez MD Office Visit 01/08/2007 1:00p Rick Velasquez MD Plan of Treatment Future Appointment(s):07/20/2018 1:00 pm - Jermaine Balderas MD at GI04/28/2018 1:30 pm - Lonny Krishnamurthy MD at Vrkzgdcjyst51/11/2019 - Jamila Rivers MS, TUB OPERATOR-C, CNMJ30.9 Allergic rhinitis, [id number] Essential (primary) hypertensionComments:-- B/P well controlled-- Continue Ramipril 2.5 mg 1 by mouth every dayR30.0 DysuriaComments:-- Increase fluids, continue cranberry juice (unsweetened) --Finish [id number] XbwqoM88.9 Counseling, yavhocxykmmN80.6 Tobacco abuse counseling
[2018-04-24 10:52] VITALS: BP 100/65
--- NOTE | 2018-04-24 11:11 | UC ---
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 NO FEVER/CHILLS. TAKING MUCINEX AND ZYRTEC PRN W/ NO RELIEF. " -sx started 2 da ago. no fevers, no chills. no wheezing. + COPD, still smokes. takes spiriva and bevespi, not on steroid inhaler -this is her 3rd illness this winter. usually needs prednisone and abx. - History of Current Complaint Chief Complaint: UCRespiratory Stated Complaint: COUGH Time Seen by Provider: 04/24/18 11:03 Pain Intensity: 0 - Allergies/Home Medications Allergies/Adverse Reactions: Allergies Allergy/AdvReac Type Severity Reaction Status Date / Time No Known Allergies Allergy Verified 04/24/18 10:44 Home Medications: Home Medications Glycopyrrolate/Formoterol Fum [Bevespi Aerosphere Inhaler] 1 inh BID 04/24/18 [ History Confirmed 04/24/18] LORazepam [Ativan 1 MG TAB] 1 mg PO BID 04/24/18 [History Confirmed 04/24/18] Mirabegron [Myrbetriq] 1 tab DAILY 04/24/18 [History Confirmed 04/24/18] PARoxetine HCL TAB* [Paxil TAB*] 1 tab QAM 04/24/18 [History Confirmed 04/24/18] Ramipril CAP* [Altace CAP*] 10 mg PO DAILY 04/24/18 [History Confirmed 04/24/18] PMH/Surg Hx/FS Hx/Imm Hx Previously Healthy: Yes Respiratory History: COPD - Surgical History Surgical History: Yes Surgery Procedure, Year, and Place: RIGHT KNEE - Family History Known Family History: Positive: Diabetes - Social History Alcohol Use: None Substance Use Type: None Smoking Status (MU): Heavy Every Day Tobacco Smoker Type: Cigarettes Amount Used/How Often: 1 PPD Length of Time of Smoking/Using Tobacco: Since Age 16 Have You Smoked in the Last Year: Yes When Did the Patient Quit Smoking/Using Tobacco: 6 months ago - Immunization History Most Recent Influenza Vaccination: Not the 2016/2017 Season Review of Systems All Other Systems Reviewed And Are Negative: Yes Constitutional: Positive: Fatigue. Negative: Fever Skin: Positive: Negative Eyes: Positive: Negative ENT: Positive: Sore Throat - mild. Negative: Sinus Congestion, Sinus Pain/ Tenderness Respiratory: Positive: Cough. Negative: Shortness Of Breath Cardiovascular: Positive: Negative Gastrointestinal: Positive: Negative Genitourinary: Positive: Negative Motor: Positive: Negative Neurovascular: Positive: Negative Musculoskeletal: Positive: Negative Neurological: Positive: Negative Psychological: Positive: Negative Is Patient Immunocompromised?: No Physical Exam Triage Information Reviewed: Yes Appearance: Well-Appearing, No Pain Distress, Well-Nourished Vital Signs: Initial Vital Signs Temp 97.2 F 04/24/18 10:47 Pulse 76 04/24/18 10:47 Resp 18 04/24/18 10:47 BP 100/65 04/24/18 10:47 Pulse Ox 97 04/24/18 10:47 Eye Exam: Normal ENT: Positive: Pharyngeal erythema - mild w/ + PND, Nasal congestion, TMs normal , Uvula midline. Negative: TM bulging, TM dull, TM red, Tonsillar swelling, Tonsillar exudate, Sinus tenderness Neck exam: Normal Neck: Positive: Supple, Nontender, No Lymphadenopathy Respiratory Exam: Normal Respiratory: Positive: Lungs clear, No respiratory distress, No accessory muscle use, Decreased breath sounds - mild. Negative: Crackles, Rhonchi, Stridor, Wheezing Cardiovascular Exam: Normal Cardiovascular: Positive: RRR, No Murmur, Pulses Normal Abdominal Exam: Normal Abdomen Description: Positive: Nontender, Soft Musculoskeletal Exam: Normal Neurological Exam: Normal Psychological Exam: Normal Skin Exam: Normal UC Diagnostic Evaluation - Laboratory O2 Sat by Pulse Oximetry: 97 Respiratory Course/Dx - Course Course Of Treatment: pt is on bevespi inhaler (LABA/LAMA) BID from her pcp. - enc to use her alb inhaler prn as well. -she is no resp distress. Lungs are clear. she has viral URI w/ stable COPD. discussed the disadvantages of using steroids or abx when not indicated bc risks. she is very agreeable. watch for worsenig sx as this may worsen and need further evaluation. - Differential Dx/Diagnosis Differential Diagnosis/HQI/PQRI: Bronchitis, Exacerbation Of COPD, Influenza, Laryngitis, Lower Resp Infection, Sinusitis Provider Diagnosis: Viral upper respiratory infection, COPD (chronic obstructive pulmonary disease) Discharge - Sign-Out/Discharge Documenting (check all that apply): Patient Departure All imaging exams completed and their final reports reviewed: No Studies - Discharge Plan Condition: Stable Disposition: HOME Patient Education Materials: COPD (Chronic Obstructive Pulmonary Disease) (ED) , Viral Syndrome (ED) Referrals: Juhi Collins MD [Primary Care Provider] - Additional Instructions: -Make sure to drink plenty fluids and get lots of rest. We talked about the importance of quitting smoking to help prevent worsening of the COPD and exacerbations. There is no evidence of bacterial infection at this time. Follow up with your PCP in 2-4 days. - Billing Disposition and Condition Condition: STABLE Disposition: Home
== END 2018-04-24 11:27 | disposition home or self-care (01) ==
LOC: UCCORT 10:11
DX: J06.9 Acute upper respiratory infection, unspecified (principal); J44.9 Chronic obstructive pulmonary disease, unspecified; F17.210 Nicotine dependence, cigarettes, uncomplicated
CPT/HCPCS: 99212; G0463